=== PATIENT | female | born 1950 | race Caucasian/White ===

== ENCOUNTER → 2020-06-10 12:21 | Outpatient (CLI) | payer MEDICARE, OTHER, SELFPAY ==
--- NOTE | ~2020-06-10 | MM_ITS ---
EXAMINATION: MM screening alberto BI w negrita HISTORY: Screening mammogram TECHNIQUE: Craniocaudal and mediolateral oblique 3-D tomosynthesis images were obtained and synthetic 2-D images were generated. CAD analysis was submitted and interpreted. COMPARISON: 01/23/2019, 11/17/2017, 06/29/2016 bilateral digital screening mammogram examinations BREAST PARENCHYMAL COMPOSITION: There are scattered areas of fibroglandular density. FINDINGS: There is no evidence of suspicious mass, calcification, or architectural distortion to sugg est malignancy in either breast. There has been no suspicious interval change. IMPRESSION: 1. No mammographic evidence of malignancy. 2. Recommend routine screening mammography in one year. BI-RADS Category 1: Negative Reviewed, dictated and finalized at location A. [place] SHIFT MANAGER
== END ==
PROVIDERS: Visit Provider Obstetrics & Gynecology
DX: Z12.31 Encounter for screening mammogram for malignant neoplasm of breast (principal)
CPT/HCPCS: 77063; 77067

== ENCOUNTER → 2020-08-23 10:52 | Outpatient (CLI) | payer MEDICARE, OTHER, SELFPAY ==
--- NOTE | ~2020-08-23 | DEXA_ITS ---
Bone Density Report Name: Gloria Souza Age: 70 Sex: Female Ethnicity: White Date of : 1950 Indication: postmenopausal; screening for osteoporosis; hysterectomy; Referring Provider: Toño Carney Study: Bone densitometry was performed. Exam Date: August 23, 2020 Accession number: [id number] Bone Density: Region BMD T-score Z-score Classification AP Spine (L1, L4) 1.103 0.6 2.7 Normal Femoral Neck (Left) 0.787 -0.6 1.2 Normal Total Hip (Left) 0.938 0.0 1.4 Normal Femoral Neck (Right) 0.839 -0.1 1.7 Normal Total Hip (Right) 0.914 -0.2 1.2 Normal Total Hip Mean 0.926 -0.1 1.3 Normal World Health Organization criteria for BMD impression classify patients as: Normal (T-score at or above -1.0), Osteopenia (T-score between -1.0 and -2.5), or Osteoporosis (T-score at or below -2.5). 10-year Fracture Risk: FRAX not reported because: All T-scores for Spine Total, Hip Total, Femoral Neck at or above -1.0 Clinical Information Provided by Patient: Has used the following medications: Vitamin D, Calcium Has the following medical conditions: Hysterectomy Patient maximum height was 66.75 Menopause Age: 47 Drinks caffeinated beverages Onset of menses at age 12 Number of children 2 Impression: The patient has normal bone mass. Discussion: BONE DENSITY IS ABOVE THE MINIMUM DESIRABLE LEVEL AT ALL SKELETAL SITES TESTED. This patient?s bone mineral density is above the minimum desirable level (T-score -1.0 or better) at all sites measured. The patient should follow a healthful lifestyle (good nutrition with adequate calcium and vitamin D, and appropriate weight-bearing exercise). Follow-Up: Consider repeating this study in 5 years or sooner if there is some new clinical indication. Reported by: [facility] on 08/23/2020 11:26:00 AM. Reviewed, dictated and finalized at location ALucy JUAN
== END ==
DX: Z78.0 Asymptomatic menopausal state (principal); Z13.820 Encounter for screening for osteoporosis
CPT/HCPCS: 77080

== ENCOUNTER → 2021-06-17 10:11 | Outpatient (CLI) | payer MEDICARE, OTHER, SELFPAY ==
--- NOTE | ~2021-06-17 | MM_ITS ---
EXAMINATION: MM screening alberto BI w negrita HISTORY: Screening mammogram TECHNIQUE: Craniocaudal and mediolateral oblique 3-D tomosynthesis images were obtained and synthetic 2-D images were generated. CAD analysis was submitted and interpreted. COMPARISON: 06/10/2020, 01/23/2019, 11/17/2017 bilateral screening mammogram examinations BREAST PARENCHYMAL COMPOSITION: The breasts are almost entirely fatty. FINDINGS: There is no evidence of suspicious mass, calcification, or architectural distortion to sugg est malignancy in either breast. There has been no suspicious interval change. IMPRESSION: 1. No mammographic evidence of malignancy. 2. Recommend routine screening mammography in one year. BI-RADS Category 1: Negative Reviewed, dictated and finalized at location A. S SUPPORT MANAGER
== END ==
PROVIDERS: Visit Provider Obstetrics & Gynecology
DX: Z12.31 Encounter for screening mammogram for malignant neoplasm of breast (principal)
CPT/HCPCS: 77063; 77067

== ENCOUNTER → 2022-07-29 12:42 | Outpatient (CLI) | payer MEDICARE, OTHER, SELFPAY ==
--- NOTE | ~2022-07-29 | MM_ITS ---
EXAMINATION: MM screening alberto BI w negrita HISTORY: Screening mammogram TECHNIQUE: Craniocaudal and mediolateral oblique 3-D tomosynthesis images were obtained and synthetic 2-D images were generated. CAD analysis was submitted and interpreted. COMPARISON: 06/17/2021, 06/10/2020, 01/23/2019 bilateral screening mammogram examinations BREAST PARENCHYMAL COMPOSITION: The breasts are almost entirely fatty. FINDINGS: There is no evidence of suspicious mass, calcification, or architectural distortion to sugg est malignancy in either breast. There has been no suspicious interval change. IMPRESSION: 1. No mammographic evidence of malignancy. 2. Recommend routine screening mammography in one year. BI-RADS Category 1: Negative Reviewed, dictated and finalized at location A. THCARE RECRUITER
== END ==
PROVIDERS: PCP Internal Medicine; Visit Provider Obstetrics & Gynecology
DX: Z12.31 Encounter for screening mammogram for malignant neoplasm of breast (principal)
CPT/HCPCS: 77063; 77067

== ENCOUNTER 2022-08-27 12:41 | Outpatient (CLI) | payer MEDICARE, OTHER, SELFPAY ==
--- NOTE | ~2022-08-27 | DEXA_ITS ---
Bone Density Report Name: ERWIN SOUSA Age: 72 Sex: Female Ethnicity: White Date of : 1950 Indication: postmenopausal; screening for osteoporosis; height loss; hysterectomy; Referring Provider: SMILEY, ROBERT Study: Bone densitometry was performed. Exam Date: August 27, 2022 Accession number: [id number] Bone Density: Region BMD T-score Z-score Classification AP Spine(L1, L4) 1.084 0.4 2.6 Normal Femoral Neck (Left) 0.749 -0.9 1.0 Normal Total Hip (Left) 0.867 -0.6 1.0 Normal Femoral Neck (Right) 0.810 -0.4 1.5 Normal Total Hip (Right) 0.918 -0.2 1.4 Normal Total Hip Mean 0.893 -0.4 1.2 Normal World Health Organization criteria for BMD impression classify patients as: Normal (T-score at or above -1.0), Osteopenia (T-score between -1.0 and -2.5), or Osteoporosis (T-score at or below -2.5). 10-year Fracture Risk: FRAX not reported because: All T-scores for Spine Total, Hip Total, Femoral Neck at or above -1.0 Clinical Information Provided by Patient: Has used the following medications: HRT (i.e. estrogen/hormone therapy), Vitamin D, Calcium Has the following medical conditions: Hysterectomy Patient maximum height was 67 Menopause Age: 47 Drinks caffeinated beverages Onset of menses at age 12 Number of children 2 Impression: The patient has normal bone mass. Discussion: BONE DENSITY IS ABOVE THE MINIMUM DESIRABLE LEVEL AT ALL SKELETAL SITES TESTED. This patient?s bone mineral density is above the minimum desirable level (T-score -1.0 or better) at all sites measured. The patient should follow a healthful lifestyle (good nutrition with adequate calcium and vitamin D, and appropriate weight-bearing exercise). Follow-Up: Consider repeating this study in 5 years or sooner if there is some new clinical indication. Reported by: BALBINA on 08/27/2022 1:08:00 PM. Reviewed, dictated and finalized at location ALucy JUAN
== END 2022-08-27 12:42 | disposition home or self-care (01) ==
LOC: ANHIMG 12:45
PROVIDERS: PCP Internal Medicine; Visit Provider Internal Medicine
DX: Z78.0 Asymptomatic menopausal state (principal)
CPT/HCPCS: 77080

== ENCOUNTER 2023-05-19 08:31 | Outpatient (CLI) | payer MEDICARE, OTHER, SELFPAY ==
[2023-05-19 21:34] LABS: Thyroid Stimulating Hormone Reflex 0.697 uIU/mL (0.465-4.68)
== END 2023-05-19 08:32 | disposition home or self-care (01) ==
PROVIDERS: PCP Internal Medicine; Visit Provider Internal Medicine
DX: R79.9 Abnormal finding of blood chemistry, unspecified (principal); I10 Essential (primary) hypertension
CPT/HCPCS: 36415; 84443

== ENCOUNTER 2023-12-03 13:22 | Outpatient (CLI) | payer MEDICARE, OTHER, SELFPAY ==
--- NOTE | ~2023-12-03 | MM_ITS ---
EXAMINATION: MM screening alberto BI w negrita HISTORY: Screening mammogram TECHNIQUE: Craniocaudal and mediolateral oblique 3-D tomosynthesis images were obtained and synthetic 2-D images were generated. CAD analysis was submitted and interpreted. COMPARISON: 07/29/2022, 06/17/2021 bilateral screening mammogram examinations BREAST PARENCHYMAL COMPOSITION: The breasts are almost entirely fatty. FINDINGS: There is no evidence of suspicious mass, calcification, or architectural distortion to sugg est malignancy in either breast. There has been no suspicious interval change. IMPRESSION: 1. No mammographic evidence of malignancy. 2. Recommend routine screening mammography in one year. BI-RADS Category 1: Negative Reviewed, dictated and finalized at location B.
== END 2023-12-03 13:23 ==
LOC: MICIMG 13:23
PROVIDERS: PCP Obstetrics & Gynecology; Visit Provider Internal Medicine
DX: Z12.31 Encounter for screening mammogram for malignant neoplasm of breast (principal)
CPT/HCPCS: 77063; 77067

== ENCOUNTER 2025-01-13 09:49 | Outpatient (CLI) | payer MEDICARE, OTHER, SELFPAY ==
--- NOTE | ~2025-01-13 | MM_ITS ---
EXAMINATION: MM screening [facility] BI w negrita HISTORY: Screening mammogram TECHNIQUE: Craniocaudal and mediolateral oblique 3-D tomosynthesis images were obtained and synthetic 2-D images were generated. CAD analysis was submitted and interpreted. COMPARISON: 12/03/2023, 07/29/2022, 06/17/2021 BREAST PARENCHYMAL COMPOSITION:Not Dense. There are scattered areas of fibroglandular density. FINDINGS: No suspicious mass, calcification, or architectural distortion are identified in either cali ast to suggest malignancy. There has been no suspicious interval change. IMPRESSION: No mammographic evidence of malignancy. Recommend routine screening mammography in one year. BI-RADS Category 1: Negative Reviewed, dictated and finalized at location .
== END 2025-01-13 09:50 | disposition home or self-care (01) ==
LOC: MICIMG 09:50
PROVIDERS: PCP Internal Medicine; Visit Provider Internal Medicine
DX: Z12.31 Encounter for screening mammogram for malignant neoplasm of breast (principal)
CPT/HCPCS: 77063; 77067

== ENCOUNTER 2025-03-28 09:33 | Outpatient (CLI) | payer MEDICARE, OTHER, SELFPAY ==
--- OUTSIDE RECORDS SUMMARY | 2025-03-01 08:15 | XMS_ITS | Continuity of Care Document ---
Author Organization [facility] Address [address] [place] [address] Phone Care Team Providers Care Pier Worker Name Role Phone Karlo PONCE MD, Barrett Unavailable Unavailabl e Allergies, Adverse Reactions, Alerts Substance Reaction Status Criticality Sulfa (Sulfonamide Antibiotics) Other Active No Information Sulfa (Sulfonamide Antibiotics) Rash Active No Information Medications Medication Instructions Dosage Effective Dates (start - stop) Status Comments VALSARTAN-HYDROCHLOROTH IAZIDE (unknown strength) Not Available - Active ASPIRIN (unknown strength) Not Available - Active BIOTIN (unknown strength) Not Available - Active CALCIUM 500-VIT D3 (unknown strength) Not Available - Active CLARITIN (unknown strength) Not Available - Active MULTIVITAMINS (unknown strength) Not Available - Active NEURIVA PLUS (unknown strength) Not Available - Active OMEGA-3 (unknown strength) Not Available - Active OMEPRAZOLE (unknown strength) Not Available - Active PRESERVISION AREDS (unknown strength) Not Available - Active REPATHA SURECLICK (unknown strength) Not Available - Active Procedures Procedure Date Office/outpatient visit,est, high Office/outpatient visit,est, high MRI upr extr joint, w/o contrast 2024 Office/outpatient visit,est, mod 2024 BMI Documented Above Normal Limit F/U Pl an Doc Office/outpatient visit,new, mod 2024 Asp/inject major joint or bursa w/o US g uidance Kenalog 40mg/mL X-ray Exam Hip Unilat With Pelvis When P erf 2-3 View BMI Documented Above Normal Limit F/U Pl an Doc Advance Directives Directive Yes / No Effective Date File Name No Information Encounters Encounter Description Practice Location Reason(s) For Visit Diagnoses Date Provider Providers Copied on Encounter Office/outpa tient visit,[facility], [address] [facility] [address], [place], [place], [id number], [place] tel:[phone] [facility] Complete rotatr-cuff tear/ruptr of r shoulder, not trauma 5 Karlo Hyde. [address] [facility], [facility] [address], [place], [address], [place]. tel:[phone] Referring Provider: Barrett Up, [address] [place] [address] [address], [place], [address]. tel:[phone] Office/outpa tient visit,[facility], [address] [facility] [address], [place], [place], [id number], [place] tel:[phone] [facility] Complete rotatr-cuff tear/ruptr of r shoulder, not trauma 5 Karlo Hyde. [address] [facility], [facility] [address], [place], [address], [place]. tel:[phone] Referring Provider: Barrett Up, [address] [place] [address] [address], [place], [address]. tel:[phone] [facility], [address] [facility] [address], [place], [place], [id number], [place] tel:[phone] [facility] Complete rotatr-cuff tear/ruptr of r shoulder, not trauma [facility] [place] [address], [address], [place], [place], [id number] , [place]. tel:[phone] Referring Provider: Barrett Up, [address] [facility] [address], [place], [address]. tel:[phone] [facility], [address], [id number], [place] [phone] [facility] Complete rotator cuff tear of right shoulder, not specified as traumatic Dec- 5 Karlo Hyde. [address] [address], [place], [address], [place]. tel: [phone] Office/outpa tient visit,[facility] [place] [place] [facility], [address] [address], [place], [place], [id number], [place] [phone] [facility] Complete rotator cuff tear of right shoulder, not specified as traumatic Dec- 5 Karlo Hyde. [address] [place] [address], [place], [address], [place]. tel: [phone] Referring Provider: Barrett Up, [address] [place] [address], [place], [address]. [phone] [facility], [address] [place] [address], [id number], [place] [phone] [facility] No Information 5 Ronna Cornejo er. [address], [id number] , [place]. tel: [phone] Office/outpa tient visit,[facility], [address] [place] [address], [id number], [place] [phone] [facility] right hip (chief complaint) Pain in right hipTrochanteric bursitis, right hip 5 Ronna Cornejo er. [address] [place] [address], [id number] , [place]. tel: [phone] Referring Provider: Chirag aGrcia, [address] [place] [address], [place], [address]. tel:[phone] Family History Family Member Type Diagnosis Age At Onset Mother Problem (finding) Hypertension Mother Problem (finding) Stroke Mother Problem (finding) Heart Disease Mother Problem (finding) Osteoarthritis Payers Payer name Insurance type Covered democrat ID Authorsarabjit tiguido(s) [place] Part [place] CM [id number] Vinicio [id number] Social History Type Description Quantity Date Captured Comments Alcohol Use Details Unknown Caffeine Use Details Unknown Tobacco Use Status Current non-smoker Smoking Status Never smoker Non-Smoking Tobacco Use Details : No Details Available : No Details Available Sex Female Gender Identity Female Vital Signs Date / Time: Height Weight BMI Pulse Rate Blood Pressure Temperature Respiratory Rate Body Surface Area Head Circumference Head Circ. Percentile Wt./Jose. Percentile BMI percentile Pulse Ox Inhaled Ox 3:10 PM 66.00 in 92.986 kg (205.00 lbs) 33.0 9 kg/m eter (2) 2.08 meter(2) Chief Complaint And Reason For Visit No Information Reason For Referral Reason For Referral No Information Plan Of Treatment Date Type Action Status Referral Ordered: MRI Upper extr joint, w/o contrast RT shoulder ordered Referral Ordered: X-ray Exam Hip Unilat With Pelvis When Perf 2-3 View RT hip ordered Appointment Gloria Souza BOOKED History Of Present Illness Encounter Date Complaint History Of Prese nt Illness right hip Gloria is a 74 ye ar-old female who presents to the office for evaluation of right hip pain. She is 5 foot 6 205 pounds. Complains of right hip and back pain. This is been present for years pain is 5 out of 10 it is aching, sharp, throbbing. She is experiencing difficulty walking, difficulty sleeping lying on the right side limping, night pain, popping. Pain is worse with lifting, sitting, standing and walking. Pain is better with massaging, [id number] medications and resting. Treatments have included anti-inflammatories, chiropractic treatment, physical therapy, plain x-ray. She has had no surgery on the right hip. She does have sciatica radiating down the right leg she is a non-smoker. Radiographs AP pelvis and AP and lateral views of the right hip demonstrate mild arthritic changes of the right hip. There are small osteophytes noted on the lateral border of the greater trochanter. No evidence of fracture is present. There is arthritic changes on the right side of the lumbar spine. Functional Status Date Functional Assessmen t No Information Instructions Date Instruction Additional Infor ashley With the patient yvrose christy into the left lateral decubitus position. The right greater trochanter was palpated. The skin was cleansed with alcohol. The skin was then anesthetized with ethyl chloride and 3 cc of lidocaine were introduced and the subcutaneous tissues. We then reprepped the skin with Betadine and alcohol. A spinal needle was used to palpate the tip of the greater trochanter, 80 mg of Kenalog and 6 cc of lidocaine were injected into the trochanteric bursal space. A sterile dressing was applied. The patient tolerated this procedure well. Related to Trochanteric bursitis, right hip Assessments Type Assessment Date assessment Complete rotatr-cuff tear/ruptr of r shoulder, not trauma Patient Care Teams Name Effective Dates (start - stop) Status Members No Information
--- NOTE | ~2025-03-28 | DEXA_ITS ---
Bone Density Report Name: ERWIN SOUSA Age: 75 Sex: Female Ethnicity: White Date of : 1950 Indication: postmenopausal; screening for osteoporosis; height loss; hysterectomy; Referring Provider: SMILEY, ROBERT Study: Bone densitometry was performed. Exam Date: March 28, 2025 Accession number: [id number] Bone Density: Region BMD T-score Z-score Classification AP Spine(L1, L4) 1.061 0.2 2.6 Normal Femoral Neck (Left) 0.772 -0.7 1.3 Normal Total Hip (Left) 0.839 -0.8 0.9 Normal Femoral Neck (Right) 0.786 -0.6 1.5 Normal Total Hip (Right) 0.880 -0.5 1.2 Normal Total Hip Mean 0.859 -0.7 1.1 Normal World Health Organization criteria for BMD impression classify patients as: Normal (T-score at or above -1.0), Osteopenia (T-score between -1.0 and -2.5), or Osteoporosis (T-score at or below -2.5). 10-year Fracture Risk: FRAX not reported because: All T-scores for Spine Total, Hip Total, Femoral Neck at or above -1.0 Previous Exams: Region Exam Age BMD T-score BMD Change BMD Change Date g/cm2 vs Baseline vs Previous AP Spine (L1,L4) 03/28/2025 75 1.061 0.2 -0.023 (-2.1%) -0.023 (-2.1%) 08/27/2022 72 1.084 0.4 Total Hip(Left) 03/28/2025 75 0.839 -0.8 -0.028 (-3.3%) -0.028 (-3.3%) 08/27/2022 72 0.867 -0.6 Total Hip(Right) 03/28/2025 75 0.880 -0.5 -0.038 (-4.2%) -0.038 (-4.2%) 08/27/2022 72 0.918 -0.2 *Denotes significance at 95% confidence level, LSC for AP Spine = 0.022 g/cm2, LSC for Total Hip = 0.027 g/cm2 Clinical Information Provided by Patient: Has used the following medications: HRT (i.e. estrogen/hormone therapy), Vitamin D, Calcium Has the following medical conditions: Hysterectomy Patient maximum height was 67 Menopause Age: 47 Drinks caffeinated beverages Onset of menses at age 12 Number of children 2 Impression: The patient has normal bone mass. The BMD for the Total Hip(Left) decreased, changing by -3.3% since the last DXA exam. The BMD for the Total Hip(Right) decreased, changing by -4.2% since the last DXA exam. Discussion: BONE DENSITY IS ABOVE THE MINIMUM DESIRABLE LEVEL AT ALL SKELETAL SITES TESTED. This patient?s bone mineral density is above the minimum desirable level (T-score -1.0 or better) at all sites measured. The patient should follow a healthful lifestyle (good nutrition with adequate calcium and vitamin D, and appropriate weight-bearing exercise). Follow-Up: Consider repeating this study in 3 to 4 years to reassess this patient's status, or sooner if there is some new clinical indication. Reported by: PERLA on 03/28/2025 10:14:00 AM. Reviewed, dictated and finalized at location A.
--- OUTSIDE RECORDS SUMMARY | 2025-03-28 10:17 | XMS_ITS | Clinical Summary ---
Author Organization [facility] Address [address] [place] [address] Care Team Providers Care Raw Material Planner Name Role Phone Unavailable Primary Care Provider Unavailabl e Source Comments [facility],non-owned Affiliates and Associated Physician Practices is amultiple site organization consisting of ambulatory clinics and hospital sitesin [place], [place], [place] and [place]. This disclosure is being madepursuant to the Care Everywhere program and may not contain all information available regarding this patient. 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 Gender Identity Not on file Sexual Orientation Not on file Plan of Treatment Health Maintenance Due Date Last Done Comments BONE DENSITY TESTING 1950 COLOGUARD (AGES 45-75) - COL ON CA SCREENING 1950 COLON MONITORING 1950 COLONOSCOPY - COLON CA SCREENING 1950 CT COLONOGRAPHY - COLON CA SCREENING 1950 Colorectal Cancer Screening 1950 FIT - COLON CA SCREENING 1950 FLEX SIG - COLON CA SCREENING 1950 LIPID TESTING 1950 MAMMOGRAM 1950 HEPATITIS C SCREENING 01/29/1969 DTAP/TDAP/TD VACCINES (1 - Tdap) 1970 PNEUMOCOCCAL VACCINE 50+ (1 of 1 - PCV) 2001 ZOSTER VACCINE (1 of 2) 2001 DEPRESSION SCREENING 07/19/2024 COVID-19 VACCINE (1 - 2023-2 5 season) 2025 INFLUENZA VACCINE (#1) 2025 Respiratory Syncytial Virus (RSV) Vaccine Pt: or over 60 yrs (1 - 1-dose 75+ series) 2026 HEPATITIS B VACCINE Aged Out No longe r eligible based on patient's age to complete this topic HIB VACCINE Aged Out No longer eligi ble based on patient's age to complete this topic HPV VACCINE Aged Out No longer eligi ble based on patient's age to complete this topic MENINGOCOCCAL (Group B) VACC INE SHARED DECISION-MAKING Aged Out No longer eligibl e based on patient's age to complete this topic MENINGOCOCCAL GROUPS A/C/Y/W VACCINE Aged Out No longer eligible b ased on patient's age to complete this topic Insurance MEDICARE [facility]
--- OUTSIDE RECORDS SUMMARY | 2025-03-28 10:17 | XMS_ITS | Clinical Summary ---
Author Organization [facility] Building B Address [address] [place] [address] Care Team Providers Care Director Marketing Analytics Name Role Phone Nicola Castro MD Unavailable [phone] Jose Jimenes MD Unavailable [phone] Chi Castrejon MD Unavailable [phone] Jai Tong MD Primary Care Provider [phone] Allergies Active Allergy Reactions Criticality Noted Date Comments Levofloxacin Other (See comments),Unknown High 08/29/2015 Reaction: Other Atorvastatin Other (See comments) Low 07/01/2021 Muscle cramping Meperidine Rash Medium 11/20/2010 Oxycodone Hives Medium 04/26/2014 Pseudoephedrine Pseudoephedrine Hcl Other (See comments) Low 08/29/2015 Feels weird when taking medication Sulfa (Sulfonamide Antibiotics) Rash Medium 08/29/2015 Medications multivitamin (MULTIPLE VITAMINS) tablet tablet take 1 tablet by oral route every day 0 0 5 Active omeprazole (PriLOSEC) 20 mg capsule Take 1 capsule (20 mg total) by mouth daily Active loratadine (CLARITIN) 10 mg tablet Take 1 tablet (10 mg total) by mouth daily Active biotin 10,000 mcg capsule Take by mouth Acti ve calcium carbonate-vitami n D3 1500 mg (600 mg elemental) -200 units per tablet Take 1 tablet by mouth daily Active aspirin 81 mg enteric coated tablet Take 1 tablet (81 mg total) by mouth daily Active lutein-zeaxanthi n 25-5 mg capsule Take 1 capsule by mouth 2 (two) times a day Active valsartan-hydroC HLOROthiazide (DIOVAN-HCT) 80-12.5 mg per tablet TAKE 1 TABLET BY MOUTH DAILY 90 tablet 1 2 Active Repatha Syringe syringe syringe INJECT 140MG INTO THE SKIN EVERY 14 DAYS 3 Active SUMAtriptan (IMITREX) 100 mg tabletIndication s:Migraine Take 1 tablet (100 mg total) by mouth once as needed for migraine (headache) May repeat one time after 2 hours if needed. 9 tablet 1 3 Active Additional Information Patient not taking.Reported on 03/26/2025 magnesium glycinate 120 mg capsule Take 240 mg by mouth daily Active lactobacillus combination no.4 (Probiotic) 3 billion cell capsule Take by mouth Active omega-3/dha/epa/ dpa/fish oil (OMEGA-3 2100 ORAL) Take by mouth Active vitamin B complex (B COMPLEX 1 ORAL) Take by mouth Active B6/folic/B12/cof fee/phosphatid (NEURIVA PLUS ORAL) Take by mouth Active Active Problems Problem Noted Date Diagnosed Date Liver disease 03/31/2023 Traumatic brain injury with loss of consciousnes s 07/28/2022 Closed head injury with concussion 07/07/2022 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 Repeat 2021 Episodic tension-type headache, not intractable 01/20/2018 Essential hypertension 08/29/2015 Gastroesophageal reflux disease 08/29/2015 Hyperlipidemia 08/29/2015 Meningioma 08/29/2015 Overview (07/19/2019): MRI 2013: IMPRESSION: Stable appearance of small approximately 5 mm mass associated with the left anterior clinoid process, suggesting a small meningioma. Repeat MRI 2020 Benign meningioma of brain 02/21/2015 Overview (07/10/2019): She saw Dr. Hager April 2019: left anterior clinoid meningioma. She has had no change in this with her last scan of 2 years ago. She does not have any visual loss, recently saw her robotic weld technician in February and had normal visual taylor. Would plan to repeat her brain MRI with and without contrast to evaluate the meningioma in 2020. Assessment & Plan (02/23/2024 2:05 PM CDT): Recent MRI (09/2023) completed showed stable meningioma. 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 She infrequently has a tension headache that she rarely needs to take medications for. Continue sumatriptan as needed. Follow up in one year. Resolved Problems Problem Noted Date Diagnosed Date Resolved Date Elevated LFTs 07/10/2019 06/25/2020 Overview (07/10/2019): Mar 2019: Liver function tests: AST is elevated at 71 is increased from last time. I would tylenol based products. US unremarkable, repeat AST Apr 2019 63. Pain of hand 04/26/2014 07/19/2019 Encounters Date Type Department Care Team Description 03/26/2025 10:00 AM CDT [facility] [address] [place] [address] Sarahy Anaya NP Meningioma (HCC) (Primary Dx); Benign meningioma of brain (HCC) from Last 3 Months Immunizations Immunization Administration Dates Next Due Hep A, Adult 11/22/2020,02/09/2020 Hep A, Unspecified 11/22/2020,02/09/2020 Influenza, Quadrivalent, Hig h Dose, Preservative Free, Intrr 04/02/2021,03/26/2020 Influenza, Quadrivalent, Spl it, Preservative Free, Intramuscular 03/24/2016 Influenza, Trivalent, High D ose, Split, Preservative Free, Intramuscular 04/05/2019,03/26/2018,03/24/2017 Influenza, Trivalent, IM (MDV) 04/29/2015,2012 Influenza, Unspecified 03/26/2020,04/05/2019 Moderna SARS-CoV-2 Monovalen t Vaccination (12+ YRS) 11/20/2021,05/16/2021 Pneumococcal Conjugate PCV 13 01/06/2018 Pneumococcal Polysaccharide PPV23 08/07/2016 Tdap 04/02/2021,01/13/2010 ZOSTER Recombinant 08/02/2019,04/05/2019 Surgical History Surgery Date Site/Laterality Comments HYSTERECTOMY 1996 Hysterectomy TUBAL LIGATION tubal Ligation OTHER SURGICAL HISTORY Bladder surg BUNIONECTOMY bunionectomy CHOLECYSTECTOMY 2000 Cholecystectomy Medical History Medical History Date Comments Hypertension Hypertension Hx Other Medical hyperlipidemia Hx Other Medical Osteopenia Hx of colonic polyps 07/19/2019 Colonoscopy January 2018. Repeat 2020 Elevated LFTs 07/10/2019: Liver function tests: AST is elevated at 71 is increased from last time. I would tylenol based products. US unremarkable, repeat AST Apr 2019 63. Allergic rhinitis GERD (gastroesophageal reflu x disease) Family History Medical History Relation Name Comments Car Accident Father accident; Cause of : accident Heart disease Mother Heart disease; Hypertension Mother Hypertension; Diabetes Other child 39 Diabetes mellit us; Other Other child 39 cholesterol; Relation Name Status Comments Father Mother Other child 39 Social History Tobacco Use Types Packs/Day Years Used Date Smoking Tobacco: Never Smokeless Tobacco: Never Tobacco Cessation:Counseling Given: Not Answered Alcohol Use Standard Drinks/Week Comments Yes 0 (1 standard drink = 0.6 oz pur e alcohol) AUDIT-C Answer Date Recorded Frequency of Alcohol Consumption Not on file 09/09/2023 Q2: How many drinks containi ng alcohol do you have on a typical day when you are drinking? Patient does not drink Frequency of Binge Drinking Not on file 08/20 PHQ-2 Answer Date Recorded PHQ-2 Total Score (If total score is 3 or more points, staff should administer the PHQ-9) 0 12/30/2021 Comments No Sex and Gender Information Value Date Recorded Sex Assigned at Not on file Legal Sex Female 3:36 AM IMAGING TECH Gender Identity Female 06/19/2020 11:06 AM IMAGING TECH Sexual Orientation Straight 06/19/2020 11 :06 AM IMAGING TECH Obstetrics History Last Filed Vital Signs Vital Sign Reading Time Taken Comments Blood Pressure 126/74 03/26/2025 9:44 AM CDT Pulse 78 03/26/2025 9:44 AM CDT Temperature 36.6 C (97.8 F) 10/03/2024 10:46 AM CDT Respiratory Rate 22 10/03/2024 10:46 AM CDT Oxygen Saturation 98% 10/03/2024 10:57 AM CDT Inhaled Oxygen Concentration - - Weight 91.6 kg (202 lb) 03/26/2025 9:44 AM CDT Height 167.6 cm (5' 6) 03/26/2025 9:44 AM CDT Body Mass Index 32.6 03/26/2025 9:44 AM CDT Plan of Treatment Health Maintenance Due Date Last Done Comments Hepatitis B Screening 1968 Well Visit 65+ 07/01/2022 07/01/2021, 06/25/2020 Depression Screening 12/30/2022 12/30/2021, 07/01/2021, 06/25/2020, Additional history exists Fall Risk Assessment 12/30/2022 12/30/2021, 07/01/2021, 02/11/2021, Additional history exists Colon Cancer Screening-Colonoscopy 02/12/2024 02/11/2021 Covid-19 Vaccine (5 2024- 6 season) 2025 11/20/2021, 05/16/2021, 10/08/2020, Additional history exists Influenza Vaccine (#1) 2025 , 04/12/2023, 04/02/2021, Additional history exists Breast Cancer Screening-Mammogram 01/13/2026 01/13/2025, 01/13/2025, 01/23/2019 Osteoporosis Screening-Bone Density Scan 03/12/2027 03/12/2025, 08/27/2022, 01/10/2013 DTaP/Tdap/Td Vaccine (3 - Td or Tdap) 04/02/2031 04/02/2021, 01/13/2010 Pneumococcal vaccine 65+ Completed 01/06/2018, 07/20 Zoster Vaccine Completed 08/02/2019, 04/05/2019 Colon Cancer Screening-CT Colonography Discontinued 02/11/2021 Colon Cancer Screening-DNA Stool Discontinued 02/12/20 Colon Cancer Screening-FIT Discontinued 02/11/2021 Colon Cancer Screening-Sigmoidoscopy Discontinued 02/11/2021 Hepatitis C Screening Completed 07/01/2021, 020 Procedures Procedure Name Priority Date/Time Associated Diagnosis Comments HEPATITIS PANEL, ACUTE Routine 07/01/2021 11:35 AM IMAGING TECH Elevated AST (SGOT) COLONOSCOPY 02/11/2021 7:58 AM CDT HM MAMMOGRAPHY Routine 01/23/2019 from Last 3 Months or Most Recently Relevant to Health Maintenance Results * Hepatitis panel, acute (07/01/2021 11:35 AM IMAGING TECH) Hep A IgM Nonreactive Nonreactive [facility] Comment: Interpretive Data: If Hep A IgM Ab is reported as Equivocal, a new sample should be drawn in two weeks for testing. Current interpretive data was last revised on 19. Hep B core IgM Nonreactive Nonreactive [facility] Comment: Interpretive Data If HepB Core IgM Ab is reported as Equivocal, a new sample should be drawn in two weeks for testing. Current interpretive data was last revised on 19. Hep C Ab Nonreactive Nonreactive [facility] Comment: Interpretive Data Nonreactive: Antibodies to HCV not detected. Does NOT exclude the possibility of recent exposure to HCV. Equivocal: Equivocal for HCV antibodies. Supplemental molecular testing will be automatically performed to determine infection status in accordance with current CDC screening recommendations. Reactive: Positive for HCV antibodies. This may represent current or past HCV infection. Supplemental molecular testing will be automatically performed to determine current infection status in accordance with current CDC screening recommendations. Interpretive data was last revised on 2019. HepBsAg Nonreactive Nonreactive [facility] Blood 07/01/2021 11:3 5 AM IMAGING TECH 07/01/2021 3:25 PM IMAGING TECH us Toño Carney MD LAB MICROBIOLOGY - GENER AL ORDERABLES Final Result [facility] [address] Department of Laboratories [place], [place] [id number] * COLONOSCOPY (02/11/2021 7:58 AM CDT) Anatomical Region Laterality Modality Other Narrative Procedure Note Corrine Petty MD - 02/11/2021 7:58 AM CDT - [facility] Endoscopy Lab Patient Name: Gloria Souza Procedure Date: 02/11/2021 7:58 AM Date of : 1950 Admit Type: Outpatient Age: 71 Gender: Female Note Status: Finalized Attending MD: Corrine Petty M.D. Procedure Date: 02/11/2021 Procedure: Colonoscopy Indications: High risk colon cancer surveillance: Personalhistory of colonic polyps, Last colonoscopy 3 years ago Providers: Corrine Petty M.D., BRENT Tobar (Anesthesia Staff), Jonathan Ch RN Referring MD: Toño Carney M.D. Medicines: Monitored Anesthesia Care Complications: No immediate complications. Estimated Blood Loss: Estimated blood loss was minimal. Procedure: Pre-Anesthesia Assessment: - Prior to the procedure, a History and Physicalwas performed, and patient medications and allergieswere reviewed. The patient is competent. The risks and benefits of the procedure and the sedation optionsand risks were discussed with the patient. Allquestions were answered and informed consent was obtained. Patient identification and proposed procedure were verified by the physician and the nurse in the pre-procedure area in the procedure room. Mental Status Examination: alert and oriented. Airway Examination: normal oropharyngeal airway and neck mobility. Respiratory Examination: clear to auscultation. CV Examination: normal. Prophylactic Antibiotics: The patient does not requireprophylactic antibiotics. Prior Anticoagulants: The patient has taken no previous anticoagulant or antiplatelet agents. ASA Grade Assessment: II - A patient withmild systemic disease. After reviewing the risks and benefits, the patient was deemed in satisfactory condition to undergo the procedure. The anesthesia plan was to use monitored anesthesia care (MAC). Immediately prior to administration of medications, the patient was re-assessed for adequacy to receive sedatives. The heart rate, respiratory rate, oxygen saturations, blood pressure, adequacy of pulmonary ventilation, and response to care were monitored throughout the procedure. The physical status ofthe patient was re-assessed after the procedure. - The risks and benefits of the procedure and the sedation options and risks were discussed with the patient. All questions were answered and informed consent was obtained. After I obtained informed consent, the scope was passed under direct vision. Throughout theprocedure, the patient's blood pressure, pulse, and oxygen saturations were monitored continuously. The scopewas passed under direct vision. The Colonoscope was introduced through the anus and advanced to the the cecum, identified by appendiceal orifice andileocecal valve. The colonoscopy was performed without difficulty. The patient tolerated the procedurewell. The quality of the bowel preparation was good. The bowel preparation used was SUPREP via split dose instruction. Findings: The perianal and digital rectal examinations were normal. A few small-mouthed diverticula were found in the sigmoid colon and descending colon. Two sessile polyps were found in the transverse colon and cecum. The polyps were 3 to 4 mm in size. These polyps were removed with a jumbo cold forceps. Resection and retrieval were complete. Verification of patient identification for the specimen was done by the nurse.Estimated blood loss was minimal. Non-bleeding internal hemorrhoids were found during retroflexion. The hemorrhoids were mild. Impression: - Diverticulosis in the sigmoid colon and in the descending colon. - Two 3 to 4 mm polyps in the transverse colon andin the cecum, removed with a jumbo cold forceps.Resected and retrieved. - Non-bleeding internal hemorrhoids. Recommendation: - Discharge patient to home (ambulatory). - Resume previous diet. - Continue present medications. - Await pathology results. - Repeat colonoscopy for surveillance based on pathology results. Procedure Code(s): --- Professional --- 62229, Colonoscopy, flexible; with biopsy, singleor multiple Diagnosis Code(s): --- Professional --- Z86.010, Personal history of colonic polyps K64.8, Other hemorrhoids K63.5, Polyp of colon K57.30, Diverticulosis of large intestine without perforation or abscess without bleeding CPT copyright 2019 [employer]. All rights reserved. The codes documented in this report are preliminary and upon medical billing coder reviewmay be revised to meet current compliance requirements. Electronically signed by Malinda Castle MD Corrine Petty M.D. 02/11/2021 8:55:57 AM This report has been electronically signed by the physician. Number of Addenda: 0 Note Initiated On: 02/11/2021 7:58 AM Corrine Petty MD ENDOSCOPY PROCEDURES Final Re sult from Last 3 Months or Most Recently Relevant to Health Maintenance Insurance [facility] MEDICARE MEDICARE [facility] MEDICARE [facility] Advance Directives For more information, please contact: [phone] Documents on File Type Date Recorded Patient Bundle Collector Expl anation ADVANCE DIRECTIVE 05/29/2018 12:00 AM [facility] FINANCIAL/MEDICAL Care Teams Director Marketing Analytics Relationship Specialty Start Date End Date Jai Tong MD [address] [address] PCP - General Internal Medicine 07/07/22 Nicola Castro MD Consulting Physician Neurology 07/10/19 [place] [address] [place] [address] Referring Physician Orthopedic Surgery 07/19/19 [place] [address] [address] Referring Physician Gastroenterology 06/30/20
--- OUTSIDE RECORDS SUMMARY | 2025-03-28 10:17 | XMS_ITS | Encounter Summary ---
Author Organization [facility] Address [address] [place] [address] Care Team Providers Care Supervisor Heavy Equipment Name Role Phone Unavailable Primary Care Provider Unavailabl e Encounter Details Date Type Department Care Team (Late st Contact Info) Description 06/08/2019 Lab Requisition [facility] DermPath Lab [address] [place] [address] Mario Ybarra MD [address] [place] [address] Social History Tobacco Use Types Packs/Day Years Used Date Smoking Tobacco: Never Assessed Comments Unknown Sex and Gender Information Value Date Recorded Sex Assigned at Not on file Legal Sex Female 5:51 PM PHYSICAL EDUCATION AIDE Gender Identity Not on file Sexual Orientation Not on file documented as of this encounter Plan of Treatment Not on file documented as of this encounter Procedures Procedure Name Priority Date/Time Associated Diagnosis Comments DERMATOPATHOLOGY Routine 06/07/2019 12:0 0 AM PHYSICAL EDUCATION AIDE documented in this encounter Results * DERMATOPATHOLOGY (06/07/2019 12:00 AM PHYSICAL EDUCATION AIDE) Case Report Dermatopathology Report Case: [id number] Authorizing Provider: Mario Ybarra MD Collected: 06/07/2019 12:00 AM Ordering Location: [facility] DermPath Lab Received: 06/08/2019 02:04 PM Pathologist: Dominga Tran MD Specimen: Skin, right lat upper back 9 12:20 PM PHYSICAL EDUCATION AIDE DERMATOPATHOLOGY LABORATORY Final Diagnosis Specimen A. SKIN, right lat upper back: LICHEN PLANUS-LIKE KERATOSIS (BENIGN LICHENOID KERATOSIS) (L82.1) 9 12:20 PM PHYSICAL EDUCATION AIDE DERMATOPATHOLOGY LABORATORY at 1220 PHYSICAL EDUCATION AIDE Clinical History R/O ISK, Fernandez's, BCC. 9 12:20 PM [facility] DERMATOPATHOLOGY LABORATORY Gross Description Specimen A: Received is one formalin filled container labeled with the patient's name and designated right lat upper back. The specimen consists of a shave biopsy measuring [id number]. Jar 0. 12:20 PM [facility] DERMATOPATHOLOGY LABORATORY Microscopic Description Specimen A. SKIN, right lat upper back: The epidermis is mildly acanthotic. There is a lichenoid infiltrate with vacuolar changes of basilar keratinocytes and scattered necrotic keratinocytes. 9 12:20 PM [facility] DERMATOPATHOLOGY LABORATORY Disclaimer An external and internal positive and negative controls are appropriate for the histochemical, immunohistochemical and immunofluorescence stain(s) in this case (if any), except where stated explicitly. The performance characteristics of the stain(s) cited in this report were developed and its performance characteristic determined by the Dermatopathology Laboratory at [facility], directed by Dr. Rosemarie Jackson. These tests need not be, and therefore are not, approved by the [place] Food and Drug Administration. The tests are used for clinical purposes. Billing Codes Specimen Charges Stain Charges 01423 1 9 12:20 PM [facility] DERMATOPATHOLOGY LABORATORY Embedded Images 12:20 PM [facility] DERMATOPATHOLOGY LABORATORY Pathology/Cytolog y TISSUE SPECIMEN FROM SKIN / Unknown 06/07/2019 06/08/2019 2:04 PM PHYSICAL EDUCATION AIDE Mario Ybarra MD LAB - PATHOLOGY/CYTOLOGY ORD ERABLES Final Result DERMATOPATHOLOGY LABORATORY [facility] - Department of Dermatology [address] [place] [address], [address] [place] [address], [facility] [phone] documented in this encounter Visit Diagnoses Not on filedocumented in this encounter
--- OUTSIDE RECORDS SUMMARY | 2025-03-28 10:17 | XMS_ITS | Encounter Summary ---
Author Organization [facility] Address [address] [place] [address] Care Team Providers Care Line Haul Owner Operator Name Role Phone Jai Tong MD Primary Care Provider [phone] Reason for Visit * Reason Onset Date Comments Procedure 01/07/2018 Encounter Details Date Type Department Care Team (Late st Contact Info) Description 01/07/2018 [facility]phone [facility] [address] [place] [address] Dominga Sherwood, clinical project assistant Social History Tobacco Use Types Packs/Day Years Used Date Smoking Tobacco: Never Alcohol Use Standard Drinks/Week Comments No 0 (1 standard drink = 0.6 oz pur e alcohol) Comments Unknown Sex and Gender Information Value Date Recorded Sex Assigned at Female 04/05/2024 10:21 PM CDT Legal Sex Female 3:57 PM RECONNAISSANCE MAN Gender Identity Female 04/05/2024 10:21 PM CDT Sexual Orientation Straight 04/05/2024 10 :21 PM CDT documented as of this encounter Miscellaneous Notes * Telephone Encounter - Dominga Sherwood, RN - 01/07/2018 12:07 PM CDT Gloria Souza is a 67 y.o. female 1950 Procedure: colonoscopy Diagnosis: Screening for colon cancer Provider: Dr. England Date and Time: January 22, 1200 PM Location: [facility] Lab Type of Prep given: Colyte Previously seen by a [facility] Baby Sitter in an inpatient or outpatient setting? (If yesteresa rowe MD) Previous endoscopy PROCEDURE: Colonoscopy Date: (Mo--Yr) 2008 Location: [place] Were Polyps Removed? (If yes please document polyp pathology) no PCP: Yuriy Julian, DO Referring Provider: (If different than PCP) Pre-Procedure health assessment completed by Dominga Sherwood RN, Height: 5'7 Weight: 181 lb BMI: 28.34 Current Outpatient Prescriptions Medication Sig Dispense Refill ??? peg 3350-electrolytes (COLYTE) 240-22.72-6.72 -5.84 gram solution Take 4,000 mL by mouth one time only for 1 dose Follow prescribing physician's instructions ONLY. These were sent by mail or email.. 4000 mL 0 ??? atorvastatin (LIPITOR) 20 mg tablet TAKE 1 TABLET BY MOUTH LATE DAY. 90 Tablet 3 ??? valsartan-hydroCHLOROthiazide (DIOVAN HCT) 80-12.5 mg tablet TAKE 1 TABLET BY MOUTH EVERY DAY 90 Tablet 3 ??? Biotin 10,000 mcg Capsule Take by mouth. ??? MELATONIN (MELATIN ORAL) Take 2 mg by mouth. ??? loratadine (CLARITIN) 10 mg tablet Take 10 mg by mouth daily. ??? calcium-vitamin D3 (CALTRATE 600+D) 600 mg(1,500mg) -200 unit Tablet Take 1 Tablet by mouth daily. ??? multivitamin (DAILY-PRASANTH) tablet Take 1 Tablet by mouth daily. ??? FERROUS FUMARATE/VIT BCOMP,C (SUPER B COMPLEX ORAL) Take 1 Tablet by mouth daily. ??? aspirin (ECOTRIN EC) 81 mg Tablet, Delayed Release (E.C.) Take 81 mg by mouth daily. ??? mzfcc-8f-psq-epa-fish oil 1,000-1,400 mg Capsule, Delayed Release(E.C.) Take 1 Capsule by mouthdaily. ??? omeprazole (PRILOSEC) 20 mg Capsule, Delayed Release(E.C.) Take 20 mg by mouth daily. No current facility-administered medications for this visit. Past Medical History: Diagnosis Date ??? HTN (hypertension) ??? Hyperlipidemia ??? 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 HX BUNIONECTOMY both feet ??? HX CHOLECYSTECTOMY ??? HX DILATION AND CURETTAGE ??? HX HAND SURGERY trigger thumb release both hands ??? HX HYSTERECTOMY total hysterectomy Social History Substance Use Topics ??? Smoking status: Never Smoker ??? Smokeless tobacco: Not on file ??? Alcohol use No Allergies Allergen Reactions ??? Levaquin [Levofloxacin] Headache ??? Demerol [Meperidine] Rash ??? Sudafed [Pseudoephedrine Hcl] Other (See Comments) Feels weird when taking medication ??? Sulfa (Sulfonamide Antibiotics) Rash documented in this encounter Plan of Treatment Not on file documented as of this encounter Visit Diagnoses Not on filedocumented in this encounter Care Teams Line Haul Owner Operator Relationship Specialty Start Date End Date Jai Tong MD [address] [place] [address] PCP - General Internal Medicine 03/31/23 documented as of this encounter
--- OUTSIDE RECORDS SUMMARY | 2025-03-28 10:17 | XMS_ITS | Clinical Summary ---
Author Organization [facility] Address [address] [place] [address] Phone Care Team Providers Care Stockholder Name Role Phone Jai Tong MD Primary Care Provider [phone] Allergies Active Allergy Reactions Criticality Noted Date Comments Levofloxacin Headache High 08/29/2015 Meperidine Rash Low 08/29/2015 Oxycodone Hives High 04/26/2014 Pseudoephedrine Hcl Other (See Comments) 08/29/2015 Feels weird when taking medication Sulfa (Sulfonamide Antibiotics) Rash Low 08/29/2015 Medications calcium-vitamin D3 (CALTRATE 600+D) 600 mg(1,500mg) -200 unit Tablet Take 1 Tablet by mouth daily. Active multivitamin (DAILY-PRASANTH) tablet Take 1 Tablet by mouth daily. Active aspirin (ECOTRIN EC) 81 mg Tablet, Delayed Release (E.C.) Take 81 mg by mouth daily. Active omeprazole (PRILOSEC) 20 mg Capsule, Delayed Release(E.C.) Take 20 mg by mouth daily. Active Biotin 10,000 mcg Capsule Take by mouth. Act valerio MELATONIN (MELATIN ORAL) Take 2 mg by mouth. Active loratadine (CLARITIN) 10 mg tablet Take 10 mg by mouth daily. Active B-complex + vitamin C (SUPER B-C) Tablet Take 1 Tablet by mouth daily. Active valsartan-hydro CHLOROthiazide (DIOVAN HCT) 80-12.5 mg tablet TAKE 1 TABLET BY MOUTH EVERY DAY 90 Tablet 9 Active omega 0-jkq-lsu-fish oil 100-160-1,000 mg Capsule Take 2,000 Int'l Units/day by mouth. Active lutein-zeaxanth in 25-5 mg Capsule Take by mouth. Activ e evolocumab (Repatha Syringe) 140 mg/mL Syringe Inject 140 mg by subcutaneous injection every 2 weeks. 3 Active coffee-theanine -superoxide dis (Neuriva De-Stress) 100-200-10 mg Capsule Take by mouth daily. Active Active Problems Problem Noted Date Diagnosed Date Liver disease 03/31/2023 Elevated alkaline phosphatase level 01/30/2020 Elevated AST (SGOT) 01/29/2020 Positive COLEMAN (antinuclear antibody) 01/29/2020 Essential hypertension 08/29/2015 Hyperlipidemia 08/29/2015 Meningioma 08/29/2015 Gastroesophageal reflux disease 08/29/2015 Encounters Date Type Department Care Team Description 02/21/2025 External Device Data ST[facility] ABSTRACTION Provider, Abstract 01/31/2025 External Device Data [facility] ABSTRACTION Provider, Abstract 01/30/2025 External Device Data [facility] ABSTRACTION Provider, Abstract from Last 3 Months Immunizations Immunization Administration Dates Next Due (PNEUMOVAX 23)(50 YRS UP) PN EUMOCOCCAL POLYSACCHARIDE (PPV23) 0.5 ML, IM 08/07/2016 (PREVNAR 13)(6 WKS UP) PNEUM OCOCCAL CONJUGATE (PCV13) 0.5 ML, IM 01/06/2018 Influenza Seasonal Unspecified Formulation IM Influenza Vaccine High Dose 65+ Yrs IM 8 Family History Medical History Relation Name Comments Heart Disease Mother Hypertension Mother Stroke Mother Colon Cancer Neg Hx Relation Name Status Comments Mother Social History Tobacco Use Types Packs/Day Years Used Date Smoking Tobacco: Never Smokeless Tobacco: Never Tobacco Cessation:Counseling Given: Not Answered Alcohol Use Standard Drinks/Week Comments No 0 (1 standard drink = 0.6 oz pur e alcohol) Comments No Sex and Gender Information Value Date Recorded Sex Assigned at Female 04/05/2024 10:21 PM CDT Legal Sex Female 3:57 PM 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 Gender Identity Female 04/05/2024 10:21 PM CDT Sexual Orientation Straight 04/05/2024 10 :21 PM CDT Last Filed Vital Signs Vital Sign Reading Time Taken Comments Blood Pressure 135/72 04/05/2024 10:36 AM CDT Pulse 83 04/05/2024 10:36 AM CDT Temperature 36.1 C (97 F) 05/04/2019 9:10 AM CDT Respiratory Rate 21 05/04/2019 11:10 AM CDT Oxygen Saturation 91% 05/04/2019 11:10 AM CDT Inhaled Oxygen Concentration - - Weight 93.4 kg (206 lb) 04/05/2024 10:36 AM CDT Height 170.2 cm (5' 7) 04/05/2024 10:36 AM CDT Body Mass Index 32.26 04/05/2024 10:36 AM CDT Plan of Treatment Health Maintenance Due Date Last Done Comments FIT-DNA Q 3 years 02/04/1996 FIT/FOBT Q 1 year 02/04/1996 Flex Sig/CT Colonography Q 5 years 02/04/1996 RSV VACCINE (60+ or ) (1 - Risk 60-74 years 1-dose series) 2011 BREAST CANCER SCREENING 06/10/2021 06/10/20, 06/10/2020, 01/23/2019, Additional history exists COLORECTAL SCREENING 02/12/2024 02/11/2021, 02/11/2021, 02/11/2021, Additional history exists Colorectal Cancer Screening 02/12/2024 INFLUENZA VACCINE (#1) 2025 , 04/09/2022, 04/02/2021, Additional history exists COVID-19 Vaccine ( - 2024-2 6 season) 2025 04/12/2023, 11/20/2021, 05/16/2021, Additional history exists OSTEOPOROSIS SCREENING 08/27/2027 , 08/27/2022, 08/23/2020, Additional history exists DTAP/TDAP/TD VACCINES (3 - T d or Tdap) 04/02/2031 04/02/2021, 01/13/2010 PNEUMOCOCCAL VACCINE 50+ YEARS Completed 01/06/2018 , 08/07/2016 ZOSTER VACCINE Completed 08/02/2019, 04/05/2019 Medical Devices Implanted Type Area Key Carrier Device Identifier Shelf Expiration Date Model / Serial / Lot Speedbridge Implant System With Scorpion-Multif rebekah Needle Implanted:Qty: 1 on 05/04/2019 by Jose Jimenes MD at [facility] [place] Left: Shoulder [employer] 12/16/2020 [id number] -8 / / [id number] [place] Sut [id number] Clean Runner Monyk-C Dbl #2tt [id number] - [id number] Implanted:Qty: 1 on 05/04/2019 by Jose Jimenes MD at [facility] [place] Left: Shoulder [employer] 03/18/2021 [id number] -[id number] / / [id number] Procedures Procedure Name Priority Date/Time Associated Diagnosis Comments COLONOSCOPY REPORT 02/02/2018 11 :00 AM CDT MAMMO SCREENING BILAT Routine 11/17/2017 XR DEXA BONE DENSITY AXIAL 1 OR MORE SITES Routine 01/10/2013 from Last 3 Months or Most Recently Relevant to Health Maintenance Results * COLONOSCOPY REPORT (02/02/2018 11:00 AM CDT) Narrative Procedure Note Dawn England DO - 02/02/2018 11:00 AM CDT [facility] Endoscopy Patient Name: Gloria Souza Procedure Date: 02/02/2018 Date of : 1950 Admit Type: Outpatient Attending MD: Dawn England MD Procedure: Colonoscopy Indications: Screening for colorectal malignant neoplasm, Screening for colorectal malignant neoplasm (last colonoscopy was 10 years ago) Providers: Dawn England MD Referring MD: Yuriy Julian Medicines: Monitored Anesthesia Care Complications: No immediate complications. Procedure: Informed consent was obtained for the procedure, including moderate sedation after risks were discussed. Based on the pre-procedure assessment, including review of the patient's medical history, medications, allergies, and review of systems, the patient was deemed to be an appropriate candidate for sedation. A timeout was performed. Continuous ECG monitoring, pulse oximetry, blood pressure monitoring, and direct observation were performed. The scope was introduced through the anus and advanced to the cecum, identified by appendiceal orifice and ileocecal valve. The colonoscopy was performed without difficulty. The patient tolerated the procedure well. The quality of the bowel preparation was fair. Estimated Blood Loss: Estimated blood loss: none. Estimated blood loss was minimal. Findings: The perianal examination was normal. Two sessile polyps were found in the hepatic flexure and cecum. The polyps were 3 to 10 mm in size. These polyps were removed with a cold snare. Resection and retrieval were complete. Estimated blood loss was minimal. There was fibrous and sedimentary stool was found in the entire colon, interfering with visualization. Lavage of the area was performed using a moderate amount of sterile water, resulting in clearance with good visualization. No additional abnormalities were found on retroflexion. Impression: - Preparation of the colon was fair. - Two 3 to 10 mm polyps at the hepatic flexure and in the cecum, removed with a cold snare. Resected and retrieved. - Stool in the entire examined colon. Recommendation: - Await pathology results. - Repeat colonoscopy in 3 years for surveillance. - Recommend a two day clear liquid diet and large volume split prep with next colonoscopy Dawn England MD 02/02/2018 11:00:03 AM This report has been signed electronically. Number of Addenda: [address]; [place] [address] Dawn England DO GI PROCEDURE ORDERABLES Fin al Result * MAMMO SCREENING BILAT (11/17/2017) Anatomical Region Laterality Modality Breast Bilateral Mammography us Antonio Maurer MD MAMMO ORDERABLES Final Result * XR DEXA BONE DENSITY AXIAL 1 OR MORE SITES (01/10/2013) Anatomical Region Laterality Modality Other Abstract Provider DIAGNOSTIC IMAGING ORDERABLES Final Result from Last 3 Months or Most Recently Relevant to Health Maintenance Insurance MEDICARE PART A AND B [facility] RX [employer] RX Member Subscriber Plan / Payer (Ef fective 2016-Present) Name:Gloria Souza Relation to Subscriber:Self Name:Gloria Souza Payer ID:Not on file Group ID:[id number] Type:RX Medicare Part D Address: [address] Advance Directives For more information, please contact: [phone] * Full Code (Latest Code Status on File) Date Activated Date Inactivated Comments 05/04/2019 6:21 AM 05/04/2019 1:18 PM * Full Code Date Activated Date Inactivated Comments 02/02/2018 9:17 AM 02/02/2018 1:42 PM Care Teams Stockholder Relationship Specialty Start Date End Date Jai Tong MD [address] [place] [address] PCP - General Internal Medicine 03/31/23
== END 2025-03-28 09:34 | disposition home or self-care (01) ==
LOC: ANHFOHIMG 09:35
PROVIDERS: PCP Internal Medicine; Visit Provider Internal Medicine
DX: Z78.0 Asymptomatic menopausal state (principal)
CPT/HCPCS: 77080

== ENCOUNTER 2025-04-12 10:16 | Inpatient (IN) | payer MEDICARE, OTHER, SELFPAY ==
[2025-04-12] VITALS (11 sets, daily range): BP systolic 139–168; BP diastolic 68–81; PULSE 77–98; RESP 12–20; TEMP 36.2–36.7; O2SAT 94–100; BMI 33.0
--- NOTE | ~2025-04-12 | CT_ITS ---
EXAMINATION: CT abdomen pelvis w con DATE: 04/12/2025 13:24 INDICATION: Abdominal pain TECHNIQUE: Computed tomography (CT) of the abdomen and pelvis was performed without intravenous contrast. The dose-length product was 1048.96 mGy-cm. Automated exposure control and iterative reconstruction technique were employed. COMPARISON: None. FINDINGS: Bibasilar dependent atelectasis. Heart size normal. No significant pleural or pericardial effusion. Status post cholecystectomy. The liver, spleen, pancreas, adrenal glands and left kidney are unremarkable. There is mild right hydronephrosis, although no obstructing stone or mass is identified. The bladder is severely distended. Fatty infiltration of the liver. Nonobstructive bowel gas pattern. There is fecal impaction of the rectum. There is atherosclerosis of the aorta. No aneurysm. Moderate lower thoracic and lumbar spondylosis. No acute osseous abnormality. There is dextroscoliosis of the lumbar spine there is mild osteoarthritis of the hips.. IMPRESSION: 1. Severe bladder distention with mild right hydronephrosis. No obstructing stone or mass identified. Reviewed, dictated and finalized at location O. IMPRESSION: 1. Severe bladder distention with mild right hydronephrosis. No obstructing sto ne or mass identified.
--- NOTE | ~2025-04-12 | XR_ITS ---
Abdominal radiograph(s) INDICATION: Impaction COMPARISON: CT 2 days prior TECHNIQUE: 3 views portable AP supine abdomen FINDINGS: Lung bases clear. Scattered colonic stool. Moderate volume. Scattered small bowel gas.. No evidence of organomegaly. No abnormal abdominal calcifications. No acute bony abnormality. IMPRESSION: 1. No acute abnormality. 2. Moderate volume stool can suggest constipation. Reviewed, dictated and finalized at location R.
--- NOTE | ~2025-04-12 | US_ITS ---
EXAMINATION: US renal BI, 04/16/2025 15:50 CDT HISTORY: Right hydronephrosis Comparison: None Technique: Engel-scale and color Doppler images were obtained. Findings: KIDNEYS: Renal cortices intact, no solid masses, cysts or calculi, no hydronephrosis. Right Kidney: Right kidney 9.7 x 5 x 5.8 cm, normal. Left Kidney: Left kidney 10.1 x 4.7 x 5.1 cm limited but grossly normal. Bladder: Tao catheter in the bladder . Impression: No acute abnormality. Reviewed, dictated and finalized at location P. Impression: No acute abnormality.
--- OUTSIDE RECORDS SUMMARY | 2025-04-12 11:19 | XMS_ITS | Clinical Summary ---
[facility] Organization [facility] Address [address] [place] [address] Care Team Providers Care Consumer Loan Manager Name Role Phone Nicola Castro MD Unavailable [phone] Jose Jimense MD Unavailable [phone] Chi Castrejon MD Unavailable [phone] Jai Tong MD Primary Care Provider [phone] Allergies Active Allergy Reactions Criticality Noted Date [...] (01/03/2021): Added automatically from request for surgery [id number] Elevated alkaline phosphatase level 01/30/2020 Positive COLEMAN [...] have any visual loss, recently saw her staging technician in February and had normal visual [...] AM CDT [facility] [address] [place] [address] Sarahy Anaya NP Meningioma (HCC) [...] on file Legal Sex Female 3:36 AM MACHINE 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 Gender Identity Female 06/19/2020 11:06 AM MACHINE SHORTHAND TEACHER Sexual Orientation Straight 06/19/2020 11 :06 AM MACHINE SHORTHAND TEACHER Obstetrics History Last Filed Vital Signs Vital [...] HEPATITIS PANEL, ACUTE Routine 07/01/2021 11:35 AM MACHINE SHORTHAND TEACHER Elevated AST (SGOT) COLONOSCOPY 02/11/2021 7:58 AM CDT HM MAMMOGRAPHY Routine 01/23/2019 from Last 3 Months or Most Recently Relevant to Health Maintenance Results * Hepatitis panel, acute (07/01/2021 11:35 AM MACHINE SHORTHAND TEACHER) Hep A IgM Nonreactive Nonreactive [facility] Comment: Interpretive Data: If Hep A IgM Ab is reported as Equivocal, a new sample should be drawn in two weeks for testing. Current interpretive data was last revised on 19. Hep B core IgM Nonreactive Nonreactive [facility] Comment: Interpretive Data If HepB Core IgM Ab is reported as Equivocal, a new sample should be drawn in two weeks for testing. Current interpretive data was last revised on 19. Hep C Ab Nonreactive Nonreactive [facility] Comment: Interpretive Data Nonreactive: Antibodies to [...] Nonreactive [facility] Blood 07/01/2021 11:3 5 AM MACHINE SHORTHAND TEACHER 07/01/2021 3:25 PM MACHINE SHORTHAND TEACHER us Toño Carney MD LAB MICROBIOLOGY - GENER AL ORDERABLES Final Result [facility] [address] Department of Laboratories [place], [place] [id number] * COLONOSCOPY (02/11/2021 7:58 AM CDT) Anatomical Region Laterality Modality Other Narrative Procedure Note Corrine Petty MD - 02/11/2021 7:58 AM CDT - [facility] Endoscopy Lab Patient Name: Gloria Souza Procedure [...] pathology results. Procedure Code(s): --- Professional --- 09420, Colonoscopy, flexible; with biopsy, singleor multiple Diagnosis Code(s): --- Professional --- Z86.010, Personal history of colonic polyps K64.8, Other hemorrhoids K63.5, Polyp of colon K57.30, Diverticulosis of large intestine without perforation or abscess without bleeding CPT copyright 2019 [employer]. All rights reserved. The codes documented in this report are preliminary and upon rolling machine operator reviewmay be revised to meet current compliance requirements. Electronically signed by Malinda Castle MD Corrine Petty M.D. 02/11/2021 8:55:57 AM This report has been electronically signed by the physician. 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 [place] SUPERVISOR FINANCIAL/MEDICAL Care Teams Consumer Loan Manager Relationship Specialty Start Date End Date Jai Tong MD [address] [address] PCP - General Internal Medicine 07/07/22 Nicola Castro MD Consulting Physician Neurology 07/10/19 [place] [address] [address] Referring Physician Orthopedic Surgery 07/19/19 [place] [address] [address] Referring Physician Gastroenterology 06/30/20
--- OUTSIDE RECORDS SUMMARY | 2025-04-12 11:19 | XMS_ITS | Clinical Summary ---
Author Organization [facility] Address [address] [address] Care Team Providers Care Press Shop Supervisor Name Role Phone Unavailable Primary Care Provider Unavailabl e Source Comments [facility],non-owned Affiliates and Associated Physician Practices is amultiple site organization consisting of ambulatory clinics and hospital sitesin [place], [place], [place] and [place]. This disclosure is being madepursuant to the Care Everywhere program and may not contain all information available regarding this patient. Last updated 18.[facility] [employer]ov cc. Social History Tobacco Use Types Packs/Day Years Used Date Smoking Tobacco: Never Assessed Comments Unknown Sex and Gender Information Value Date Recorded Sex Assigned at Not on file Legal Sex Female 5:51 PM BAKERY HELPER Gender Identity Not on file Sexual Orientation [...] age to complete this topic Insurance [facility]ICARE [facility]
--- OUTSIDE RECORDS SUMMARY | 2025-04-12 11:19 | XMS_ITS | Encounter Summary ---
Author Organization [facility] Address [address] [place] [address] Care Team Providers Care Gambling Cashier Name Role Phone Unavailable Primary Care Provider Unavailabl e Encounter Details Date Type Department Care Team (Late st Contact Info) Description 06/08/2019 Lab Requisition [facility] DermPath Lab [address] [facility] [place] [address] Mario Ybarra MD [address] [place] [address] Social History Tobacco Use Types Packs/Day Years Used Date Smoking Tobacco: Never Assessed Comments Unknown Sex and Gender Information Value Date Recorded Sex Assigned at Not on file Legal Sex Female 5:51 PM CHEMICAL INSPECTOR Gender Identity Not on file Sexual Orientation Not on file documented as of this encounter Plan of Treatment Not on file documented as of this encounter Procedures Procedure Name Priority Date/Time Associated Diagnosis Comments DERMATOPATHOLOGY Routine 06/07/2019 12:0 0 AM CHEMICAL INSPECTOR documented in this encounter Results * DERMATOPATHOLOGY (06/07/2019 12:00 AM CHEMICAL INSPECTOR) Case Report Dermatopathology Report Case: [id number] Authorizing Provider: Mario Ybarra MD Collected: 06/07/2019 12:00 AM Ordering Location: [facility] DermPath Lab Received: 06/08/2019 02:04 PM Pathologist: Dominga Tran MD Specimen: Skin, right lat upper back 9 12:20 PM CHEMICAL INSPECTOR DERMATOPATHOLOGY LABORATORY Final Diagnosis Specimen A. SKIN, right lat upper back: LICHEN PLANUS-LIKE KERATOSIS (BENIGN LICHENOID KERATOSIS) (L82.1) 9 12:20 PM CHEMICAL INSPECTOR DERMATOPATHOLOGY LABORATORY at 1220 CHEMICAL INSPECTOR Clinical History R/O ISK, Fernandez's, BCC. 9 12:20 PM [facility] DERMATOPATHOLOGY LABORATORY Gross Description Specimen A: Received is one formalin filled container labeled with the patient's name and designated right lat upper back. The specimen consists of a shave biopsy measuring [id number]. Jar 0. 12:20 PM [facility] DERMATOPATHOLOGY LABORATORY Microscopic Description Specimen A. SKIN, right lat upper back: The epidermis is mildly acanthotic. There is a lichenoid infiltrate with vacuolar changes of basilar keratinocytes and scattered necrotic keratinocytes. 9 12:20 PM [facility] DERMATOPATHOLOGY LABORATORY Disclaimer An external and internal positive and negative controls are appropriate for the histochemical, immunohistochemical and immunofluorescence stain(s) in this case (if any), except where stated explicitly. The performance characteristics of the stain(s) cited in this report were developed and its performance characteristic determined by the Dermatopathology Laboratory at [facility], directed by Dr. Rosemarie Jackson. These tests need not be, and therefore are not, approved by the [place] Food and Drug Administration. The tests are used for clinical purposes. Billing Codes Specimen Charges Stain Charges 89934 1 9 12:20 PM [facility] DERMATOPATHOLOGY LABORATORY Embedded Images 12:20 PM [facility] DERMATOPATHOLOGY LABORATORY Pathology/Cytolog y TISSUE SPECIMEN FROM SKIN / Unknown 06/07/2019 06/08/2019 2:04 PM CHEMICAL INSPECTOR Mario Ybarra MD LAB - PATHOLOGY/CYTOLOGY ORD ERABLES Final Result DERMATOPATHOLOGY LABORATORY [facility] - Department of Dermatology [address] [place] [address], [address] [place] [address], [facility] [phone] documented in this encounter Visit Diagnoses Not on filedocumented in this encounter
--- OUTSIDE RECORDS SUMMARY | 2025-04-12 11:19 | XMS_ITS | Encounter Summary ---
Author Organization [facility] Address [address] [place] [address] Care Team Providers Care Woods Rider Name Role Phone Jai Tong MD Primary Care Provider [phone] Reason for Visit * Reason Onset Date Comments Procedure 01/07/2018 Encounter Details Date Type Department Care Team (Late st Contact Info) Description 01/07/2018 Telephone [facility] [address] [place] [address] Dominga Sherwood, customer success director Social History Tobacco Use Types Packs/Day Years Used Date Smoking Tobacco: Never Alcohol Use Standard Drinks/Week Comments No 0 (1 standard drink = 0.6 oz pur e alcohol) Comments Unknown Sex and Gender Information Value Date Recorded Sex Assigned at Female 04/05/2024 10:21 PM CDT Legal Sex Female 3:57 PM WILDLIFE 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 female 1950 Procedure: colonoscopy Diagnosis: Screening for colon cancer Provider: Dr. England Date and Time: January 22, 1200 PM Location: [facility] GI Lab Type of Prep given: Colyte Previously seen by a [facility] Fats And Oils Loader in an inpatient or outpatient setting? (If yesteresa rowe MD) Previous endoscopy PROCEDURE: Colonoscopy Date: (Mo--Yr) 2008 Location: [place] Were Polyps Removed? (If yes please document [...] Take 81 mg by mouth daily. ??? mohhi-3y-ywp-epa-fish oil 1,000-1,400 mg Capsule, Delayed Release(E.C.) Take [...] on filedocumented in this encounter Care Teams Woods Rider Relationship Specialty Start Date End Date Jai Tong MD [address] [place] [address] PCP - General Internal Medicine 03/31/23 documented as of this encounter
--- OUTSIDE RECORDS SUMMARY | 2025-04-12 11:19 | XMS_ITS | Clinical Summary ---
Author Organization [facility] Address [address] [place] [address] Phone Care Team Providers Care Central Sterile Tech Name Role Phone Jai Tong MD Primary Care Provider [phone] Allergies Active Allergy Reactions Criticality Noted Date [...] EVERY DAY 90 Tablet 9 Active omega 5-qxc-gxw-fish oil 100-160-1,000 mg Capsule Take 2,000 Int'l Units/day by mouth. Active lutein-zeaxanth in 25-5 mg Capsule Take by mouth. Activ e evolocumab (Repatha Syringe) 140 mg/mL Syringe Inject 140 mg by subcutaneous injection every 2 weeks. 3 Active coffee-theanine -superoxide dis (Neuriva De-Stress) 100-200-10 mg Capsule Take by mouth daily. Active linaCLOtide (LINZESS) 145 mcg capsule Take 1 Capsule (145 mcg) by mouth daily in the morning before breakfast. 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 Gender Identity Female 04/05/2024 10:21 PM CDT [...] 1-dose series) 2011 BREAST CANCER SCREENING 06/10/2021 06/10/20 20, 06/10/2020, 01/23/2019, Additional history exists COLORECTAL SCREENING 02/12/2024 02/11/2021, 02/11/2021, 02/11/2021, Additional history exists Colorectal Cancer Screening 02/12/2024 INFLUENZA VACCINE (#1) 2025 3, 04/09/2022, 04/02/2021, Additional history exists COVID-19 Vaccine (2024-2 6 season) 2025 04/12/2023, 11/20/2021, 05/16/2021, Additional history exists OSTEOPOROSIS SCREENING 08/27/2027 3, 08/27/2022, 08/23/2020, Additional history exists DTAP/TDAP/TD VACCINES (3 - T d or Tdap) 04/02/2031 04/02/2021, 01/13/2010 PNEUMOCOCCAL VACCINE 50+ YEARS Completed 01/06/2018 , 08/07/2016 ZOSTER VACCINE Completed 08/02/2019, 04/05/2019 Medical Devices Implanted Type Area Dye Reel Operator Helper Device Identifier Shelf Expiration Date Model / Serial / Lot Speedbridge Implant System With Scorpion-Multif rebekah Needle Implanted:Qty: 1 on 05/04/2019 by Jose Jimenes MD at [facility] [place] Left: Shoulder [employer] 12/16/2020 [id number] -[id number] / / [id number] [place] Sut [id number] M2M Solution Swivelckk-C Dbl #2tt [id number] - [id number] Implanted:Qty: 1 on 05/04/2019 by Jose Jimenes MD at [facility] [place] Left: Shoulder [employer] 03/18/2021 [id number] -[id number] / / [id number] Procedures Procedure Name Priority Date/Time Associated Diagnosis Comments COLONOSCOPY REPORT 02/02/2018 11 :00 AM CDT MAMMO SCREENING BILAT Routine 11/17/2017 XR DEXA BONE DENSITY AXIAL 1 OR MORE SITES Routine 01/10/2013 from Last 3 Months or Most Recently Relevant to Health Maintenance Results * COLONOSCOPY REPORT (02/02/2018 11:00 AM CDT) Narrative Procedure Note Dawn England DO - 02/02/2018 11:00 AM CDT [facility] Endoscopy Patient Name: Gloria Souza Procedure [...] of Addenda: [address]; [place] [address] us Dawn England DO GI PROCEDURE ORDERABLES Fin al Result * MAMMO SCREENING BILAT (11/17/2017) Anatomical Region Laterality Modality Breast Bilateral Mammography Antonio Maurer MD MAMMO ORDERABLES Final Result * XR DEXA BONE DENSITY AXIAL 1 OR MORE SITES (01/10/2013) Anatomical Region Laterality Modality Other Abstract Provider DIAGNOSTIC IMAGING ORDERABLES Final Result from Last 3 Months or Most Recently Relevant to Health Maintenance Insurance [employer] [facility] Member Subscriber Plan / Payer ( fective 2016-Present) Name:Libby Gloria Relation to Subscriber:Self Name:Gloria Souza Payer ID:Not on file Group ID:[id number] Type:RX Medicare Part D Address: [address] Advance Directives For more information, please contact: [phone] * Full Code (Latest Code Status on File) Date Activated Date Inactivated Comments 05/04/2019 6:21 AM 05/04/2019 1:18 PM * Full Code Date Activated Date Inactivated Comments 02/02/2018 9:17 AM 02/02/2018 1:42 PM Care Teams Central Sterile Tech Relationship Specialty Start Date End Date Jai Tong MD [address] [facility] [address] [place] [address] PCP - General Internal Medicine 03/31/23
[2025-04-12] MEDS: ONDANSETRON INJ 4 MG/2 ML VIAL IV PUSH (12:02)
--- NOTE | 2025-04-12 12:07 | ED_ITS ---
HPI - General Adult General Chief complaint: Unspecified Stated complaint: CONSTIPATION AFTER BEING ON POST OP MEDS Time Seen by Provider: 04/12/25 10:58 History of Present Illness HPI narrative: Gloria Souza is a 75-year-old female who presents today with complaints of having constipation. She states that she had right rotator cuff surgery last Wednesday and she has not had a bowel movement since. She complains of having fullness and abdominal pain, along with nausea. She states that she has not vomited. She feels that she could still pass gas if she tried but states she feels lot of pressure over time she does. She states that since Wednesday she has been taking Linzess and lactulose and still nothing has come out. And she is having nausea and increased pain. Related Data Home Medications ?Medication ?Instructions ?Recorded ?Confirmed ?Last Taken ?Type pravastatin 40 mg tablet 40 mg PO DAILY 08/04/2207/19 Unknown History valsartan 80 mg tablet 80 mg PO DAILY 08/04/2207/19 Unknown History Allergies Allergy/AdvReac Type Severity Reaction Status Date / Time meperidine Allergy Severe HIVES Verified 04/12/25 10:17 Sulfa (Sulfonamide Allergy Severe HIVES Verified 04/12/25 10:17 Antibiotics) levofloxacin Allergy Intermediate RASH Verified 04/12/25 10:17 hydrocodone Allergy Hives / Verified 04/12/25 10:17 Red Face Review of Systems 2 Review of Systems: All systems reviewed & are unremarkable except as noted in HPI and below PMFSH Past Medical History Medical History (Updated 04/12/25 @ 18:50 by Emperatriz Gonsalez APRN) Other abnormalities of gait and mobility Dyslipidemia Constipation Urinary retention Hypertension High cholesterol Surgical History Surgical History (Updated 04/12/25 @ 18:50 by Emperatriz Gonsalez APRN) Status post rotator cuff repair History of rotator cuff surgery (~04/18/19) (L) shoulder History of hand surgery 2013 (L) hand trigger thumb release 2014 (R) hand trigger thumb release History of bunionectomy of right great toe (~2013) History of bunionectomy of left great toe 2008 & 05/24/18 History of stress incontinence procedure using tension free vaginal tape (~2011) History of breast biopsy 11/05/01 (R) breast--benign 04/08/02 (R) breast--fatty necrosis History of cholecystectomy (2000) History of bilateral salpingo-oophorectomy (08/08/97) benign paratubal hydatid of morgagni/tuboovarian adhesions History of ovarian cystectomy (06/21/96) (L) ovarian cyst--benign History of hysterectomy (11/17/95) mild chronic endocervicitis/superficial adenomyosis/leiomyomata History of dilation and curettage (08/23/95) menometrorrhagia/dysmenorrhea--benign History of cervical polypectomy (10/14/92) moderate atypia, focal with koilcytosis History of tubal ligation (~1979) Family History Family History Sibling Diabetes mellitus sister Mother Cerebrovascular accident Hypertension Heart disease Social History Social History Smoking status: Never smoker Alcohol intake: never Substance use: never Living arrangements: alone Occupation/Education: retired Gender identity (if verbalized by the patient): Female Sexual Orientation (if Verbalized by the Patient): Straight or Heterosexual Exam 2 Narrative: GENERAL: no acute distress, appears uncomfortable HEAD: Normocephalic, atraumatic. EYES: PERRLA and EOMI. ENT: Nares clear, no rhinorrhea or epistaxis. Oropharynx without tonsillar hypertrophy exudate or other lesions. NECK: Supple. No adenopathy or masses. No carotid bruits or JVD CHEST: Clear to auscultation. No respiratory distress. No wheezes rales or rhonchi HEART: Regular rate and rhythm. No murmur heard. Normal peripheral pulses. ABDOMEN: hypoactive to absent bowel sounds, abdomen is slightly distended + pain generalized EXTREMITIES: Normal range of motion. No edema. SKIN: Warm, dry, no rash. NEURO: No focal deficits. Alert and oriented x3. PSYCH: Normal mood and affect. Course Vital Signs Vital signs: Vital Signs Temperature 36.2 C L 04/12/25 10:26 Pulse Rate 94 04/12/25 10:26 Respiratory Rate 18 04/12/25 10:26 Blood Pressure 139/68 04/12/25 10:26 Pulse Oximetry 99 04/12/25 10:26 Oxygen Delivery Room Air 04/12/25 10:26 Temperature 36.7 C 04/12/25 18:22 Pulse Rate 86 04/12/25 18:22 Respiratory Rate 20 04/12/25 18:22 Blood Pressure 142/72 H 04/12/25 18:22 Pulse Oximetry 99 04/12/25 18:22 Oxygen Delivery Room Air 04/12/25 11:56 Medical Decision Making MDM Narrative Medical decision making narrative: 75 y/o status post 1 week post op complains of constipation based on hx and exam concern for SBO, Constipation, CBC shows mild leukocytosis 12.5 hemodynamically stable CMP sodium 131 glucose 113 AST 67 alk-phos 145 CT scan shows severe bladder distension with right renal hydronephrosis If getting CT results when back to talk with patient she explained that she had to use the bathroom they would to do the CT scan but she has since Wednesday the bathroom without allergic male did was feeling fine did feel like she needs to go anymore we did a postvoid bladder scan which showed greater than 1100 mL of urine in her bladder. She was then she placed a Tao catheter and 1400 mls of urine came out, Tao was clamped for couple of hours unclear 200 mils of urine came out. The CT scan did not today severe constipation it did mention a fecal impaction in the rectum. I did may need is impaction and was able to get some stool out as far as patient could tolerate is she is willing to try an enema to see if any more stool could come 0. I explained to her that the CT did not show severe constipation that now that her bladder is deflated she may be able to have a bowel movement easier. With the amount of urinary retention that she was having we will not be able to remove that Tao catheter today and with her recent surgery unable to use her right arm she is concerned that living at home she will be able to handle the Tao catheter with 1 arm at home and daughter is unable to stay with her and feels that she should be admitted into the hospital. I did reach out to the hospitalist regarding admission for this urinary retention needing blood catheter postop 1 week and constipation. Talked with [facility] hospitalist who accepts admission. Did go ahead and do the enema for the patient she has small results with that. Medical Records Medical records reviewed: Yes I reviewed the external patient's medical records. Vital Signs Vital Signs: Vital Signs Temperature 36.2 C L 04/12/25 10:26 Pulse Rate 94 04/12/25 10:26 Respiratory Rate 18 04/12/25 10:26 Blood Pressure 139/68 04/12/25 10:26 Pulse Oximetry 99 04/12/25 10:26 Oxygen Delivery Room Air 04/12/25 10:26 Temperature 36.7 C 04/12/25 18:22 Pulse Rate 86 04/12/25 18:22 Respiratory Rate 20 04/12/25 18:22 Blood Pressure 142/72 H 04/12/25 18:22 Pulse Oximetry 99 04/12/25 18:22 Oxygen Delivery Room Air 04/12/25 11:56 Vital signs reviewed Lab Data Lab results reviewed: Yes I reviewed the patient's lab results. 04/12/25 12:03 04/12/25 12:03 Labs: Lab Results 04/12/25 Range/Units 12:03 WBC 12.5 H (4.5-10.0) K/mm3 RBC 4.27 (4.2-5.4) M/mm3 Hgb 13.2 (12.0-15.0) g/dL Hct 38.4 (37.0-47.0) % MCV 89.9 (80-100) fl MCH 30.9 (26-34) pg MCHC 34.4 (32-36) g/dl RDW 12.9 (11.5-14.5) % Plt Count 327 (150-375) k/mm3 MPV 8.4 (7.4-10.4) fl Immature Gran % (Auto) 0.5 (0-0.5) % Neut % (Auto) 83.0 H (45.5-73.1) % Lymph % (Auto) 7.8 L (18.3-44.2) % [place] % (Auto) 7.5 (2.6-8.5) % Eos % (Auto) 0.8 (0-4.4) % Baso % (Auto) 0.4 (0.2-1.2) % Lymph # (Auto) 0.97 (0.9-3.2) K/mm3 [place] # (Auto) 0.9 H (0.1-0.6) K/mm3 Eos # (Auto) 0.1 (0-0.3) K/mm3 Baso # (Auto) 0.1 (0.0-0.1) K/mm3 Abs Immat Gran (auto) 0.06 H (0.00-0.031) K/mm3 Absolute Neuts (auto) 10.4 H (1.3-6.7) K/mm3 Absolute Nucleated RBC 0.000 (0.0-0.012) K/mm3 Nucleated RBC % 0.0 (0.0-0.2) % Sodium 131 L (137-145) mmol/L Potassium 3.5 (3.4-5.0) mmol/L Chloride 97 L (98-107) mmol/L Carbon Dioxide 29 (22-30) mmol/L Anion Gap 5 (4-12) mmol/L BUN 12 (7-17) mg/dL Creatinine 0.61 L (0.7-1.0) mg/dL Estim Creat Clear Calc 79 ml/min Estimated GFR > 60 (59 - ) Glucose 113 H (65-110) mg/dL Calcium 8.6 (8.4-10.2) mg/dL Total Bilirubin 0.5 (0.2-1.3) mg/dL AST 67 H (14-36) U/L ALT 24 (6-35) U/L Alkaline Phosphatase 145 H (38-126) U/L Total Protein 7.1 (6.3-8.2) g/dL Albumin 3.7 (3.5-5.1) g/dL Imaging Data Radiologist's impression: Impressions Abdomen/Pelvis CT 04/12/25 13:26 IMPRESSION: 1. Severe bladder distention with mild right hydronephrosis. No obstructing stone or mass identified. Discharge Plan Discharge Clinical Impression: Urinary retention, Status post rotator cuff repair Constipation Qualifiers: Constipation type: other constipation type Qualified Code(s): K59.09 - Other constipation Patient Disposition: Still a Patient Condition: Stable Time of Disposition: 18:49
[2025-04-12 12:10] LABS: Hematocrit 38.4 % (37.0-47.0); Hemoglobin 13.2 g/dL (12.0-15.0); Immature Granulocyte Percent A 0.5 % (0-0.5); Lymphocytes Absolute Auto 0.97 K/mm3 (0.9-3.2); Mean Corpuscular HGB Conc 34.4 g/dl (32-36); Mean Corpuscular Hemoglobin 30.9 pg (26-34); Mean Corpuscular Volume 89.9 fl (80-100); Nucleated Red Blood Cells Absolute Auto 0.000 K/mm3 (0.0-0.012); Nucleated Red Blood Cells Perc 0.0 % (0.0-0.2); Platelet Count Result 327 k/mm3 (150-375); Red Blood Count 4.27 M/mm3 (4.2-5.4); White Blood Count 12.5 K/mm3 (4.5-10.0)
[2025-04-12 12:30] LABS: Alanine Aminotransferase 24 U/L (6-35); Albumin Level 3.7 g/dL (3.5-5.1); Alkaline Phosphatase 145 U/L (38-126); Anion Gap 5 mmol/L (4-12); Aspartate Amino Transferase 67 U/L (14-36); Bilirubin,Total 0.5 mg/dL (0.2-1.3); Blood Urea Nitrogen 12 mg/dL (7-17); Calcium 8.6 mg/dL (8.4-10.2); Carbon Dioxide 29 mmol/L (22-30); Chloride 97 mmol/L (98-107); Estimated CRCL calculation 79 ml/min; Estimated Glomerular Filt Rate > 60; Glucose 113 mg/dL (65-110); Potassium 3.5 mmol/L (3.4-5.0); Sodium 131 mmol/L (137-145); Total Protein 7.1 g/dL (6.3-8.2)
[2025-04-12 15:37] LABS: Add Urine Microscopic? NO; Appearance Urine Clear (Clear); Glucose Urine UA Negative (Negative); Leukocyte Esterase Ur Negative LEU/UL (Negative); Nitrate Urine Negative (Negative); Specific Grav Ur 1.018 (1.001-1.035)
--- NOTE | 2025-04-12 15:45 | P.HP_ITS ---
H&P: HPI History of Present Illness Date/Time: 04/12/25 15:45 Chief Complaint: Constipation Narrative: This is a very pleasant 8-year-old female patient with past medical history of hypertension hyperlipidemia who is status post right sided rotator cuff repair 04/04/25 at [facility] assisting surgeon [facility] in [place] who comes to the emergency room with complaints of having no bowel movement for 1 week and increased urgency of urination. Patient reports that she was given oxycodone to take for pain and has been taking that at home for pain and her arm is held in immobilization with sling and swath. As a result patient has been unable to have a bowel movement despite her surgeon prescribing her Linzess and lactulose that she has taken for the past 3 days. Patient stated last night the pain and bloating in the abdomen became unbearable, prompting her to present to the emergency room for evaluation today. Patient also endorses urinary symptoms of urgency for 4 days without any burning and states she feels so bloated she cannot tell if she is adequately emptying her bladder or not. Her temperature yesterday was a T-max of 101.0?. She also had associated nausea and vomiting yesterday. She reports intermittent flatus. Patient does live at home alone, states she has no help and that she cannot adequately care for herself independently right now. In the emergency room workup was performed showing normal vital signs, unremarkable metabolic panel and CBC with mild leukocytosis at 12.[address] scan of the abdomen pelvis showing a severely distended bladder with mild right hydronephrosis without stone or mass. Patient also noted to have rectal impaction. Patient was manually disimpacted in the ED by the ER provi yasmine. Bladder scan showed 1400 cc urine in the bladder and Ragland catheter was placed. Hospitalist service is being asked to admit this patient in the current setting for management of constipation, urinary retention and being unable to care for herself at home potentially requiring placement. Pt is agreeable to this POC. Urinalysis was not ordered at the point this patient was presented to hospitalist service. I asked emergency room provider to please have urine sent and we will monitor for the need of potential antibiotic given findings of CT scan, patient complaints and concern for febrile status yesterday. In addition, the ER provider stated she would order an enema. Review of Systems Review of Systems: All systems reviewed & are unremarkable except as noted in HPI and below PMFSH Past Medical History Medical History (Updated 04/12/25 @ 16:16 by MERARI Nina) Other abnormalities of gait and mobility Dyslipidemia Constipation Urinary retention Hypertension High cholesterol Surgical History Surgical History (Updated 04/12/25 @ 16:13 by MERARI Nina) Status post rotator cuff repair History of rotator cuff surgery (~04/18/19) (L) shoulder History of hand surgery 2013 (L) hand trigger thumb release 2014 (R) hand trigger thumb release History of bunionectomy of right great toe (~2013) History of bunionectomy of left great toe 2008 & 05/24/18 History of stress incontinence procedure using tension free vaginal tape (~2011) History of breast biopsy 11/05/01 (R) breast--benign 04/08/02 (R) breast--fatty necrosis History of cholecystectomy (2000) History of bilateral salpingo-oophorectomy (08/08/97) benign paratubal hydatid of morgagni/tuboovarian adhesions History of ovarian cystectomy (06/21/96) (L) ovarian cyst--benign History of hysterectomy (11/17/95) mild chronic endocervicitis/superficial adenomyosis/leiomyomata History of dilation and curettage (08/23/95) menometrorrhagia/dysmenorrhea--benign History of cervical polypectomy (10/14/92) moderate atypia, focal with koilcytosis History of tubal ligation (~1979) Family History Family History Sibling Diabetes mellitus sister Mother Cerebrovascular accident Hypertension Heart disease Social History Social History Smoking status: Never smoker Alcohol intake: never Substance use: never Living arrangements: alone Occupation/Education: retired Gender identity (if verbalized by the patient): Female Sexual Orientation (if Verbalized by the Patient): Straight or Heterosexual Meds Home Medications and Allergies Home Medications ?Medication ?Instructions ?Recorded ?Confirmed ?Type pravastatin 40 mg tablet 40 mg PO DAILY 08/04/2207/19 History valsartan 80 mg tablet 80 mg PO DAILY 08/04/2207/19 History Allergies Allergy/AdvReac Type Severity Reaction Status Date / Time meperidine Allergy Severe HIVES Verified 04/12/25 10:17 Sulfa (Sulfonamide Allergy Severe HIVES Verified 04/12/25 10:17 Antibiotics) levofloxacin Allergy Intermediate RASH Verified 04/12/25 10:17 hydrocodone Allergy Hives / Verified 04/12/25 10:17 Red Face Vital Signs Vital Signs - 24 hr 04/12/25 10:26 04/12/25 11:56 04/12/25 12:00 Temperature 97.2 F L 97.6 F Pulse Rate 94 77 78 Respiratory Rate 18 12 13 Blood Pressure 139/68 159/76 H 159/76 H Pulse Oximetry 99 97 97 Oxygen Delivery Room Air Room Air 04/12/25 12:01 04/12/25 12:01 04/12/25 12:16 Temperature Pulse Rate 78 77 79 Respiratory Rate 12 12 Blood Pressure 158/80 H 160/75 H Pulse Oximetry 99 94 Oxygen Delivery 04/12/25 12:31 04/12/25 12:46 04/12/25 13:01 Temperature Pulse Rate 78 82 82 Respiratory Rate 12 14 15 Blood Pressure 154/75 H 162/75 H 153/81 H Pulse Oximetry 97 99 99 Oxygen Delivery Exam Const: General: uncomfortable Other: lying supine at this time on stretcher in no acute distress. HENMT: Face/Nose/Sinus: Normal nares present Mouth: Yes dry mucous membranes Eyes: General: appearance normal, both eyes and all related structures Neck: Neck: supple and no JVD Lymphatic: lymphadenopathy not noted Chest: Other: not tender to palpation, no crepitus Resp: Effort & Inspection: normal respiratory effort Auscultation: clear to auscultation bilaterally Cardio: Rate: regular rate Rhythm: regular rhythm Heart sounds: no gallops, no murmurs and no rubs GI: Inspection: non-distended GI Palp: Yes Soft to palpation and Yes Tenderness to palpation present (GI) (low abdominal tenderness, worse suprapubic region.) Auscultation: normal bowel sounds Urinary Catheter: Urinary Catheter: patent and draining and urine clear Skin: General skin exam: normal color, no rashes or lesions noted and no erythema Wounds: no wounds Other: 4 lap surgical incisions intact to the r ight shoulder with steri strips in place. No redness, warmth, drainage or any edema Neuro: Speech: normal speech Motor exam (neuro): Abnormal motor strength present (RUE - operative extremity weak w/decreased AROM.) Sensory Exam: normal sensation Other: Cap refill BUE <2 sec and radial pulses BUE 2+ Extrem: General: normal exam except as noted Other: RUE held in adduction and immobilized. Normal cap refill and radial pulses. Psych: Mental Status: mental status grossly normal Affect: Sad affect present (apparent depressed affect.) H&P: Results Labs Labs: Short CBC 04/12/25 Range/Units 12:03 WBC 12.5 H (4.5-10.0) K/mm3 Hgb 13.2 (12.0-15.0) g/dL Hct 38.4 (37.0-47.0) % Plt Count 327 (150-375) k/mm3 BMP 04/12/25 12:03 Sodium 131 L Potassium 3.5 Chloride 97 L Carbon Dioxide 29 BUN 12 Creatinine 0.61 L Glucose 113 H Calcium 8.6 Liver Function 04/12/25 Range/Units 12:03 Total Bilirubin 0.5 (0.2-1.3) mg/dL AST 67 H (14-36) U/L ALT 24 (6-35) U/L Alkaline Phosphatase 145 H (38-126) U/L Albumin 3.7 (3.5-5.1) g/dL Urine 04/12/25 Range/Units 15:23 Urine Color Yellow (Yellow) Urine Appearance Clear (Clear) Urine pH 7.0 (5.0-9.0) Ur Specific [place] 1.018 (1.001-1.035) Urine Protein Negative (Negative) mg/dL Urine Glucose (UA) Negative (Negative) mg/dL Assessment and Plan Assessment and plan (1) Status post rotator cuff repair: Code(s): Z98.890 - Other specified postprocedural states Status: Acute Assessment and Plan: * One week ago on 04/04/25 * Right arm held in adduction with immobilizer * Operative site C/D/I w/out any s/s of infection. * PRN Pain control. (2) Urinary retention: Code(s): R33.9 - Retention of urine, unspecified Status: Acute Assessment and Plan: * Acutely was holding 1400 ml of urine in the bladder * Ragland catheter was placed. * Monitor output and consider voiding trial. * UA was performed and was negative for acute infection. * No abx coverage initiated. * Consult Urology as pt has noted right sided hydronephrosis without stone or mass. (3) Constipation: Code(s): K59.00 - Constipation, unspecified Status: Acute Assessment and Plan: * Manual disimpaction performed in ER. * Start Bowel regimen of Miralax 17G daily, Colace 200 mg BID, with PRN Dulcolax suppository prn if no BM in 3 day intervals. * CT Abd and pelvis was independently viewed by this practitioner and there are no s/s of acute SBO. (4) Other abnormalities of gait and mobility: Code(s): R26.89 - Other abnormalities of gait and mobility Status: Acute Assessment and Plan: * Status post right rotator cuff repair. * Now with indwelling ragland catheter. * Pt lives at home alone and does not feel that she can adequately care for herself. * Consult Care coordination for placment and PT/OT for eval and discharge planning recommendation. * Fall precautions. (5) Hypertension: Code(s): I10 - Essential (primary) hypertension Status: Chronic Assessment and Plan: * BP noted to be runnings 150s/80s. * Restart home meds once they have been confirmed. * Continue to trend and monitor. (6) Dyslipidemia: Code(s): E78.5 - Hyperlipidemia, unspecified Status: Chronic Assessment and Plan: * Heart Healthy diet * Continue Statin therapy once home meds have been confirmed. Quality VTE Prophylaxis VTE prophylaxis: pharmacologic ordered Hospitalist MIPS Advance Care Plan I have confirmed that the patient's Advanced Care Plan is present, code status is documented, or surrogate decision maker is listed in patient medical record.: Yes Medication Reconciliation I have utilized all available resources to obtain, update and review the patients current medications (includes all prescriptions, OTC, herbals, cannabis, and nutritional supplements).: Yes
--- NOTE | 2025-04-12 18:13 | ADMGEN ---
This patient, Gloria Souza, was admitted to [facility] Surg Room 312-01. Patient/family oriented to hospital policies and general routines including ID bracelet, bed and alarms, visiting hours, pain management, procedures, bathroom and other care routines, personal items, smoking policy, room service/diet, and visiting hours. Information on how to activate the Rapid Response Team has been discussed. Patient/Family are encouraged to report perceived risks to care and to ask questions if they do not understand what they are told or what they should do.
[2025-04-12] MEDS: DOCUSATE SODIUM 100 MG CAPSULE 200 MG PO (20:15)
[2025-04-12] MEDS: IBUPROFEN 600 MG TABLET PO (20:19)
[2025-04-13 05:29] VITALS: BP 167/72; PULSE 73; RESP 16; TEMP 36.2; O2SAT 97
[2025-04-13] MEDS: DOCUSATE SODIUM 100 MG CAPSULE 200 MG PO ×2 (08:12→20:45)
[2025-04-13] MEDS: VALSARTAN 80 MG TABLET PO (08:12)
[2025-04-13] MEDS: ENOXAPARIN 40 MG/0.4 ML SYRINGE SUB-Q (08:13)
[2025-04-13] MEDS: ASPIRIN 81 MG ENTERIC TABLET 162 MG PO (08:13)
--- NOTE | 2025-04-13 09:04 | P.CONUR_ITS ---
Assessment and Plan Assessment and plan (1) Urinary retention: Code(s): R33.9 - Retention of urine, unspecified Status: Acute (2) Constipation: Qualifiers: Constipation type: other constipation type Qualified Code(s): K59.09 - Other constipation Code(s): K59.00 - Constipation, unspecified Status: Acute (3) Hydronephrosis: Code(s): N13.30 - Unspecified hydronephrosis Status: Acute Plan 75y old female with urinary retention and mild right hydro in setting of constipation being POD 9 right sided rotator cuff repair 04/04/25 at [facility] [place] assisting [facility]. -bowel regimen needed for her post op constipation and moving forward -keep ragland for at least a week. -depending on LOS, could consider voiding trial before discharge or may do as outpatient. -Renal US on moday to reevaluate hydronephrosis. -No plan for urologic surgical intervention. Urology Consult Note HPI Date Seen: 04/13/25 Requesting Physician: Chirag Lynch MD Primary Care Provider: Jai Tong, Consult Narrative Narrative: Gloria Souza is a 75 year old female with past medical history of hypertension hyperlipidemia who is status post right sided rotator cuff repair 04/04/25 at [facility] surgery [facility] who comes to the emergency room with complaints of having no bowel movement for 1 week and increased urgency of urination. Patient reports that she was given oxycodone to take for pain and has been taking that at home for pain and her arm is held in immobilization with sling and swath. As a result patient has been unable to have a bowel movement despite her surgeon prescribing her Linzess and lactulose that she has taken for the past 3 days. Patient stated last night the pain and bloating in the abdomen became unbearable, prompting her to present to the emergency room for evaluation today. Patient also endorses urinary symptoms of urgency for 4 days without any burning and states she feels so bloated she cannot tell if she is adequately emptying her bladder or not. Her temperature yesterday was a T-max of 101.0?. She also had associated nausea and vomiting yesterday. She reports intermittent flatus. Patient does live at home alone, states she has no help and that she cannot adequately care for herself independently right now. In the emergency room workup was performed showing normal vital signs, unremarkable metabolic panel and CBC with mild leukocytosis at 12.[address] scan of the abdomen pelvis showing a severely distended bladder with mild right hydronephrosis without stone or mass. Patient also noted to have rectal impaction. Patient was manually disimpacted in the ED by the ER provider. Bladder scan showed 1400 cc urine in the bladder and Ragland catheter was placed. Hospitalist service is being asked to admit this patient in the current setting for management of constipation, urinary retention and being unable to care for herself at home potentially requiring placement. Pt is agreeable to this POC. Urinalysis was not ordered at the point this patient was presented to hospitalist service. I asked emergency room provider to please have urine sent and we will monitor for the need of potential antibiotic given findings of CT scan, patient complaints and concern for febrile status yesterday. In addition, the ER provider stated she would order an enema Review of Systems 2 Review of Systems: per [facility] Past Medical History Medical History (Updated 04/13/25 @ 12:36 by Madelaine Hernandez APRN) Other abnormalities of gait and mobility Dyslipidemia Constipation Urinary retention Hypertension High cholesterol Surgical History Surgical History (Updated 04/12/25 @ 18:50 by Emperatriz Gonsalez APRN) Status post rotator cuff repair History of rotator cuff surgery (~04/18/19) (L) shoulder History of hand surgery 2013 (L) hand trigger thumb release 2014 (R) hand trigger thumb release History of bunionectomy of right great toe (~2013) History of bunionectomy of left great toe 2008 & 05/24/18 History of stress incontinence procedure using tension free vaginal tape (~2011) History of breast biopsy 11/05/01 (R) breast--benign 04/08/02 (R) breast--fatty necrosis History of cholecystectomy (2000) History of bilateral salpingo-oophorectomy (08/08/97) benign paratubal hydatid of morgagni/tuboovarian adhesions History of ovarian cystectomy (06/21/96) (L) ovarian cyst--benign History of hysterectomy (11/17/95) mild chronic endocervicitis/superficial adenomyosis/leiomyomata History of dilation and curettage (08/23/95) menometrorrhagia/dysmenorrhea--benign History of cervical polypectomy (10/14/92) moderate atypia, focal with koilcytosis History of tubal ligation (~1979) Family History Family History Sibling Diabetes mellitus sister Mother Cerebrovascular accident Hypertension Heart disease Social History Social History Smoking status: Never smoker Alcohol intake: never Substance use: never Lack of Transportation: No Lack of Food: Never True Current Housing: I Have Housing Concerned About Future Housing: No Difficulty Paying Gas/Electric Bills: No Difficulty Paying for Meds: No Currently Unemployed: No Education: High School Diploma/GED Difficulty w/ Childcare or Family Care: No Living arrangements: alone Occupation/Education: retired Gender identity (if verbalized by the patient): Female Sexual Orientation (if Verbalized by the Patient): Straight or Heterosexual Spiritual care concerns: Yes Meds Home Medications and Allergies Home Medications ?Medication ?Instructions ?Recorded ?Confirmed ?Type pravastatin 40 mg tablet 40 mg PO DAILY 08/04/2203/20 History valsartan 80 mg tablet 80 mg PO DAILY 08/04/2203/20 History aspirin 81 mg tablet,delayed 162 mg PO DAILY 04/12/25 04/12/25 History release (Enteric Coated Aspirin) Allergies Allergy/AdvReac Type Severity Reaction Status Date / Time meperidine Allergy Severe HIVES Verified 04/12/25 19:10 Sulfa (Sulfonamide Allergy Severe HIVES Verified 04/12/25 19:10 Antibiotics) levofloxacin Allergy Intermediate RASH Verified 04/12/25 19:10 hydrocodone Allergy Hives / Verified 04/12/25 19:10 Red Face Vital Signs Vital Signs - 24 hr 04/12/25 10:26 04/12/25 11:56 04/12/25 12:00 Temperature 97.2 F L 97.6 F Pulse Rate 94 77 78 Respiratory Rate 18 12 13 Blood Pressure 139/68 159/76 H 159/76 H Pulse Oximetry 99 97 97 Oxygen Delivery Room Air Room Air 04/12/25 12:01 04/12/25 12:01 04/12/25 12:16 Temperature Pulse Rate 78 77 79 Respiratory Rate 12 12 Blood Pressure 158/80 H 160/75 H Pulse Oximetry 99 94 Oxygen Delivery 04/12/25 12:31 04/12/25 12:46 04/12/25 13:01 Temperature Pulse Rate 78 82 82 Respiratory Rate 12 14 15 Blood Pressure 154/75 H 162/75 H 153/81 H Pulse Oximetry 97 99 99 Oxygen Delivery 04/12/25 16:28 04/12/25 18:22 04/12/25 19:30 Temperature 98.0 F Pulse Rate 81 86 Respiratory Rate 13 20 Blood Pressure 153/81 H 142/72 H Pulse Oximetry 98 99 Oxygen Delivery Room Air 04/12/25 21:08 04/13/25 05:29 Temperature 97.3 F L 97.2 F L Pulse Rate 98 73 Respiratory Rate 14 16 Blood Pressure 168/71 H 167/72 H Pulse Oximetry 100 97 Oxygen Delivery Exam 2 Const: General: comfortable and no acute distress Eyes: General: appearance normal, both eyes and all related structures Resp: Effort & Inspection: normal respiratory effort Urinary Catheter: Urinary Catheter: patent and draining and urine clear Skin: General skin exam: normal color Neuro: Speech: normal speech Results Labs 04/12/25 12:03 04/12/25 12:03 Labs: Short CBC 04/12/25 Range/Units 12:03 WBC 12.5 H (4.5-10.0) K/mm3 Hgb 13.2 (12.0-15.0) g/dL Hct 38.4 (37.0-47.0) % Plt Count 327 (150-375) k/mm3 BMP 04/12/25 12:03 Sodium 131 L Potassium 3.5 Chloride 97 L Carbon Dioxide 29 BUN 12 Creatinine 0.61 L Glucose 113 H Calcium 8.6 Liver Function 04/12/25 Range/Units 12:03 Total Bilirubin 0.5 (0.2-1.3) mg/dL AST 67 H (14-36) U/L ALT 24 (6-35) U/L Alkaline Phosphatase 145 H (38-126) U/L Albumin 3.7 (3.5-5.1) g/dL Urine 04/12/25 Range/Units 15:23 Urine Color Yellow (Yellow) Urine Appearance Clear (Clear) Urine pH 7.0 (5.0-9.0) Ur Specific [place] 1.018 (1.001-1.035) Urine Protein Negative (Negative) mg/dL Urine Glucose (UA) Negative (Negative) mg/dL
[2025-04-13] MEDS: ONDANSETRON INJ 4 MG/2 ML VIAL IV PUSH (09:10)
--- NOTE | 2025-04-13 10:48 | PM.IMPN ---
Progress Note: A&P Assessment and Plan (1) Status post rotator cuff repair: Code(s): Z98.890 - Other specified postprocedural states Status: Acute (2) Urinary retention: Code(s): R33.9 - Retention of urine, unspecified Status: Acute (3) Constipation: Qualifiers: Constipation type: other constipation type Qualified Code(s): K59.09 - Other constipation Code(s): K59.00 - Constipation, unspecified Status: Acute (4) Other abnormalities of gait and mobility: Code(s): R26.89 - Other abnormalities of gait and mobility Status: Acute (5) Hypertension: Code(s): I10 - Essential (primary) hypertension Status: Chronic (6) Dyslipidemia: Code(s): E78.5 - Hyperlipidemia, unspecified Status: Chronic Plan 75y old female with urinary retention and mild right hydro in setting of constipation being POD 9 right sided rotator cuff repair 04/04/25 at [facility]. -bowel regimen needed for her post op constipation -keep ragland for at least a week. She had over a liter in her bladder. -depending on LOS, could consider voiding trial before discharge or may do as outpatient. 04/13 Spoke with urology. No plans for inpatient procedures at this time. Will reassess hydronephrosis with ultrasound on Wednesday, 04/16. Patient cleared for diet as tolerated. Continue bowel regimen. Resume Repatha. Next dose 04/17. Family will bring in medication. Bedside RN updated. Subjective Date/time seen: 04/13/25 10:48 Interval history: 75-year-old female with a past medical history of hypertension, hyperlipidemia who is status post right rotator cuff repair 04/04/25 at [facility]. She presented to the ED on 04/12/2025 with complaints of constipation x1 week and increased urinary urgency. Patient seen at bedside. She states her abdomen is still sore and she is thirsty while NPO. Has been up with minimal assist in the room. Review of Systems Review of Systems: All systems reviewed & are unremarkable except as noted in HPI and below Exam Const: General: no acute distress HENMT: Face/Nose/Sinus: Normal nares present Mouth: Yes dry mucous membranes Eyes: General: appearance normal, both eyes and all related structures Neck: Neck: supple and no JVD Lymphatic: lymphadenopathy not noted Chest: Other: not tender to palpation, no crepitus Resp: Effort & Inspection: normal respiratory effort Auscultation: clear to auscultation bilaterally Cardio: Rate: regular rate Rhythm: regular rhythm Heart sounds: no gallops, no murmurs and no rubs GI: Inspection: non-distended Auscultation: normal bowel sounds Urinary Catheter: Urinary Catheter: patent and draining and urine clear Skin: General skin exam: normal color, no rashes or lesions noted and no erythema Other: 4 lap surgical incisions intact to the right shoulder with steri strips in place. No redness, warmth, drainage or any edema Neuro: Speech: normal speech Motor exam (neuro): Abnormal motor strength present (RUE - operative extremity weak w/decreased AROM.) Sensory Exam: normal sensation Other: Cap refill BUE <2 sec and radial pulses BUE 2+ Extrem: General: normal exam except as noted Other: RUE held in adduction and immobilized. Normal cap refill and radial pulses. Psych: Mental Status: mental status grossly normal Objective Data Vital Signs Vital Signs: Vital Signs - 24 hr 04/12/25 11:56 04/12/25 12:00 04/12/25 12:01 Temperature 97.6 F Pulse Rate 77 78 78 Respiratory Rate 12 13 Blood Pressure 159/76 H 159/76 H Pulse Oximetry 97 97 Oxygen Delivery Room Air 04/12/25 12:01 04/12/25 12:16 04/12/25 12:31 Temperature Pulse Rate 77 79 78 Respiratory Rate 12 12 12 Blood Pressure 158/80 H 160/75 H 154/75 H Pulse Oximetry 99 94 97 Oxygen Delivery 04/12/25 12:46 04/12/25 13:01 04/12/25 16:28 Temperature Pulse Rate 82 82 81 Respiratory Rate 14 15 13 Blood Pressure 162/75 H 153/81 H 153/81 H Pulse Oximetry 99 99 98 Oxygen Delivery 04/12/25 18:22 04/12/25 19:30 04/12/25 21:08 Temperature 98.0 F 97.3 F L Pulse Rate 86 98 Respiratory Rate 20 14 Blood Pressure 142/72 H 168/71 H Pulse Oximetry 99 100 Oxygen Delivery Room Air 04/13/25 05:29 04/13/25 09:45 Temperature 97.2 F L Pulse Rate 73 Respiratory Rate 16 Blood Pressure 167/72 H Pulse Oximetry 97 Oxygen Delivery Room Air Intake/Output Intake/Output: Intake & Output 04/10/25 04/11/25 04/12/25 04/13/25 23:59 23:59 23:59 23:59 Intake Total 200 Output Total 50 800 Balance -50 -600 Meds/Results Medications: Active Medications Generic Name Dose Route Start Last Admin Trade Name Freq PRN Reason Stop Dose Admin Aspirin 162 mg 04/13/25 09:00 04/13/25 08:13 Aspirin 81 Mg Enteric Tablet PO 162 mg DAILY SAMI Administration Bisacodyl 10 mg 04/12/25 16:16 Bisacodyl 10 Mg Suppository RECTAL Q72HR PRN Constipation Docusate Sodium 200 mg 04/12/25 21:00 04/13/25 08:12 Docusate Sodium 100 Mg Capsule PO 200 mg Q12HR SAMI Administration Enoxaparin Sodium 40 mg 04/13/25 09:00 04/13/25 08:13 Enoxaparin 40 Mg/0.4 Ml Syringe SUB-Q 40 mg DAILY SAMI Administration Ibuprofen 600 mg 04/12/25 16:20 04/12/25 20:19 Ibuprofen 600 Mg Tablet PO 600 mg Q6HR PRN Administration Pain Rated 1-3 Ondansetron HCl 4 mg 04/13/25 08:46 04/13/25 09:10 Ondansetron Inj 4 Mg/2 Ml Vial IV PUSH 4 mg Q4H PRN Administration Nausea And Vomiting Oxycodone/Acetaminophen 1 tab 04/12/25 16:20 Oxycodone/Acetaminophen (*Crx) 10-325 Mg Tablet PO Q4H PRN Pain Rated 7-10 Polyethylene Glycol 17 gm 04/13/25 09:00 04/13/25 08:13 Polyethylene Glycol 3350 17 Gm Powd.Pack PO Not Given QAM [facility] Pravastatin Sodium 40 mg 04/13/25 09:00 04/13/25 08:14 Pravastatin Sodium 20 Mg Tablet PO Not Given DAILY [facility] Tramadol HCl 50 mg 04/12/25 16:20 Tramadol Hcl (*Crx) 50 Mg Tablet PO Q6H PRN Pain Rated 4-6 Valsartan 80 mg 04/13/25 09:00 04/13/25 08:12 Valsartan 80 Mg Tablet PO 80 mg DAILY [facility] Administration Radiology Results: ITS Impressions Abdomen/Pelvis CT 04/12/25 13:26 IMPRESSION: 1. Severe bladder distention with mild right hydronephrosis. No obstructing stone or mass identified. Labs Labs: Laboratory Results - last 24 hr 04/12/25 04/12/25 12:03 15:23 WBC 12.5 H RBC 4.27 Hgb 13.2 Hct 38.4 MCV 89.9 MCH 30.9 MCHC 34.4 RDW 12.9 Plt Count 327 MPV 8.4 Immature Gran % (Auto) 0.5 Neut % (Auto) 83.0 H Lymph % (Auto) 7.8 L [place] % (Auto) 7.5 Eos % (Auto) 0.8 Baso % (Auto) 0.4 Lymph # (Auto) 0.97 [place] # (Auto) 0.9 H Eos # (Auto) 0.1 Baso # (Auto) 0.1 Abs Immat Gran (auto) 0.06 H Absolute Neuts (auto) 10.4 H Absolute Nucleated RBC 0.000 Nucleated RBC % 0.0 Sodium 131 L Potassium 3.5 Chloride 97 L Carbon Dioxide 29 Anion Gap 5 BUN 12 Creatinine 0.61 L Estim Creat Clear Calc 79 Estimated GFR > 60 Glucose 113 H Calcium 8.6 Total Bilirubin 0.5 AST 67 H ALT 24 Alkaline Phosphatase 145 H Total Protein 7.1 Albumin 3.7 Urine Color Yellow Urine Appearance Clear Urine pH 7.0 Ur Specific [place] 1.018 Urine Protein Negative Urine Glucose (UA) Negative Urine Ketones Trace H Ur Blood (Man) Negative Urine Nitrate Negative Urine Bilirubin Negative Urine Urobilinogen 0.2 Leukocyte Esterase Rfl Negative Quality VTE Prophylaxis VTE prophylaxis: pharmacologic ordered
[2025-04-13] MEDS: BISACODYL 10 MG SUPPOSITORY RECTAL (13:11)
[2025-04-13 14:00] VITALS: BP 111/51; PULSE 82; RESP 16; O2SAT 98
[2025-04-13 22:00] VITALS: BP 144/68; PULSE 81; RESP 18; TEMP 36.3; O2SAT 97
[2025-04-14 04:27] VITALS: BP 148/74; PULSE 74; RESP 16; TEMP 36.8; O2SAT 96
[2025-04-14] MEDS: ASPIRIN 81 MG ENTERIC TABLET 162 MG PO (09:57)
[2025-04-14] MEDS: DOCUSATE SODIUM 100 MG CAPSULE 200 MG PO ×2 (09:58→21:15)
[2025-04-14] MEDS: VALSARTAN 80 MG TABLET PO (09:58)
[2025-04-14] MEDS: ENOXAPARIN 40 MG/0.4 ML SYRINGE SUB-Q (09:58)
[2025-04-14] MEDS: ONDANSETRON INJ 4 MG/2 ML VIAL IV PUSH (10:04)
--- NOTE | 2025-04-14 10:31 | PM.IMPN ---
Progress Note: A&P Assessment and Plan (1) Status post rotator cuff repair: Code(s): Z98.890 - Other specified postprocedural states Status: Acute (2) Urinary retention: Code(s): R33.9 - Retention of urine, unspecified Status: Acute (3) Constipation: Qualifiers: Constipation type: other constipation type Qualified Code(s): K59.09 - Other constipation Code(s): K59.00 - Constipation, unspecified Status: Acute (4) Other abnormalities of gait and mobility: Code(s): R26.89 - Other abnormalities of gait and mobility Status: Acute (5) Hypertension: Qualifiers: Hypertension type: primary hypertension Qualified Code(s): I10 - Essential (primary) hypertension Code(s): I10 - Essential (primary) hypertension Status: Chronic (6) Dyslipidemia: Code(s): E78.5 - Hyperlipidemia, unspecified Status: Chronic Plan 75y old female with urinary retention and mild right hydro in setting of constipation being POD 9 right sided rotator cuff repair 04/04/25 at [facility] in [place]. -bowel regimen needed for her post op constipation -keep ragland for at least a week. She had over a liter in her bladder. -depending on LOS, could consider voiding trial before discharge or may do as outpatient. 04/13: Spoke with urology. No plans for inpatient procedures at this time. Will reassess hydronephrosis with ultrasound on Wednesday, 04/16. Patient cleared for diet as tolerated. Continue bowel regimen. Resume Repatha. Next dose due on 04/17. Family will bring in medication. Bedside RN updated. 04/14: Patient seen sitting up in chair. Reports only small amount of gelatinous stool has been passed and noted it has a dark red tint mixed in. KUB ordered to assess impaction. Will repeat soap suds enema based on results. Subjective Date/time seen: 04/14/25 0830 Interval history: 75-year-old female with a past medical history of hypertension, hyperlipidemia who is status post right rotator cuff repair 04/04/25 at [facility] in [place]. She presented to the ED on 04/12/2025 with complaints of constipation x1 week and increased urinary urgency. Patient reports intermittient nausea with no vomiting and no large stool has passed. Review of Systems Review of Systems: All systems reviewed & are unremarkable except as noted in HPI and below Exam Const: General: no acute distress HENMT: Face/Nose/Sinus: Normal nares present Mouth: Yes dry mucous membranes Eyes: General: appearance normal, both eyes and all related structures Neck: Neck: supple and no JVD Lymphatic: lymphadenopathy not noted Chest: Other: not tender to palpation Resp: Effort & Inspection: normal respiratory effort Auscultation: clear to auscultation bilaterally Cardio: Rate: regular rate Rhythm: regular rhythm Heart sounds: no gallops, no murmurs and no rubs GI: Inspection: non-distended Auscultation: normal bowel sounds Urinary Catheter: Urinary Catheter: patent and draining and urine clear Skin: General skin exam: normal color, no rashes or lesions noted and no erythema Other: lap sites intact to the right shoulder with steri strips in place. No redness, warmth, drainage or any edema Neuro: Speech: normal speech Motor exam (neuro): Abnormal motor strength present (RUE - operative extremity weak w/decreased AROM.) Sensory Exam: normal sensation Other: Cap refill BUE <2 sec and radial pulses BUE 2+ Extrem: General: normal exam except as noted Other: RUE held in adduction and immobilized. Normal cap refill and radial pulses. Psych: Mental Status: mental status grossly normal Objective Data Vital Signs Vital Signs: Vital Signs - 24 hr 04/13/25 11:46 04/13/25 14:00 04/13/25 20:00 Temperature Pulse Rate 82 Respiratory Rate 16 Blood Pressure 111/51 L Pulse Oximetry 98 Oxygen Delivery Room Air Room Air 04/13/25 22:00 04/14/25 04:27 Temperature 97.3 F L 98.2 F Pulse Rate 81 74 Respiratory Rate 18 16 Blood Pressure 144/68 H 148/74 H Pulse Oximetry 97 96 Oxygen Delivery Intake/Output Intake/Output: Intake & Output 04/11/25 04/12/25 04/13/25 04/14/25 23:59 23:59 23:59 23:59 Intake Total 1590 240 Output Total 50 1400 550 Balance -50 190 -310 Meds/Results Medications: Active Medications Generic Name Dose Route Start Last Admin Trade Name Freq PRN Reason Stop Dose Admin Aspirin 162 mg 04/13/25 09:00 04/14/25 09:57 Aspirin 81 Mg Enteric Tablet PO 162 mg DAILY SAMI Administration Bisacodyl 10 mg 04/12/25 16:16 04/13/25 13:11 Bisacodyl 10 Mg Suppository RECTAL 10 mg Q72HR PRN Administration Constipation Docusate Sodium 200 mg 04/12/25 21:00 04/14/25 09:58 Docusate Sodium 100 Mg Capsule PO 200 mg Q12HR SAMI Administration Enoxaparin Sodium 40 mg 04/13/25 09:00 04/14/25 09:58 Enoxaparin 40 Mg/0.4 Ml Syringe SUB-Q 40 mg DAILY SAMI Administration Ibuprofen 600 mg 04/12/25 16:20 04/12/25 20:19 Ibuprofen 600 Mg Tablet PO 600 mg Q6HR PRN Administration Pain Rated 1-3 Miscellaneous Information 1 each 04/14/25 00:01 Repatha Syringe - Please Send To Pharmacy For Verification When Received And Clarify Which XX 05/14/25 00:00 CLARIFY SAMI Non-Formulary Medication 140 mg 04/16/25 09:00 Evolocumab [Repatha Syringe] SUB-Q 05/16/25 08:59 [id number] SAMI Ondansetron HCl 4 mg 04/13/25 08:46 04/14/25 10:04 Ondansetron Inj 4 Mg/2 Ml Vial IV PUSH 4 mg Q4H PRN Administration Nausea And Vomiting Oxycodone/Acetaminophen 1 tab 04/12/25 16:20 Oxycodone/Acetaminophen (*Crx) 10-325 Mg Tablet PO Q4H PRN Pain Rated 7-10 Polyethylene Glycol 17 gm 04/13/25 09:00 04/14/25 09:58 Polyethylene Glycol 3350 17 Gm Powd.Pack PO 17 gm QAM SAMI Administration Tramadol HCl 50 mg 04/12/25 16:20 Tramadol Hcl (*Crx) 50 Mg Tablet PO Q6H PRN Pain Rated 4-6 Valsartan 80 mg 04/13/25 09:00 04/14/25 09:58 Valsartan 80 Mg Tablet PO 80 mg DAILY SAMI Administration Radiology Results: ITS Impressions Abdomen/Pelvis CT 04/12/25 13:26 IMPRESSION: 1. Severe bladder distention with mild right hydronephrosis. No obstructing stone or mass identified. Quality VTE Prophylaxis VTE prophylaxis: pharmacologic ordered
[2025-04-14 14:00] VITALS: BP 103/79; PULSE 93; RESP 16; TEMP 36.4; O2SAT 99
[2025-04-14] MEDS: BISACODYL 10 MG SUPPOSITORY RECTAL (14:39)
[2025-04-14 22:00] VITALS: BP 146/66; PULSE 76; RESP 20; TEMP 36.6; O2SAT 98
[2025-04-15 06:00] VITALS: BP 130/59; PULSE 70; RESP 18; TEMP 36.3; O2SAT 95
[2025-04-15] MEDS: DOCUSATE SODIUM 100 MG CAPSULE 200 MG PO ×2 (09:09→20:52)
[2025-04-15] MEDS: ASPIRIN 81 MG ENTERIC TABLET 162 MG PO (09:09)
[2025-04-15] MEDS: ENOXAPARIN 40 MG/0.4 ML SYRINGE SUB-Q (09:10)
[2025-04-15] MEDS: VALSARTAN 80 MG TABLET PO (09:10)
--- NOTE | 2025-04-15 09:11 | PM.IMPN ---
Progress Note: A&P Assessment and Plan (1) Status post rotator cuff repair: Code(s): Z98.890 - Other specified postprocedural states Status: Acute (2) Urinary retention: Code(s): R33.9 - Retention of urine, unspecified Status: Acute (3) Constipation: Qualifiers: Constipation type: other constipation type Qualified Code(s): K59.09 - Other constipation Code(s): K59.00 - Constipation, unspecified Status: Acute (4) Other abnormalities of gait and mobility: Code(s): R26.89 - Other abnormalities of gait and mobility Status: Acute (5) Hypertension: Qualifiers: Hypertension type: primary hypertension Qualified Code(s): I10 - Essential (primary) hypertension Code(s): I10 - Essential (primary) hypertension Status: Chronic (6) Dyslipidemia: Code(s): E78.5 - Hyperlipidemia, unspecified Status: Chronic Plan 75-year-old female recent post right rotator cuff repair 04/04/25 who presented with constipation x1 week and increased urinary urgency. Ragland placed. Treating constipation. Had over a liter in her bladder. . Reports intermittent nausea, no vomiting. Small amount of hematuria, likely pulled ragland Urinary retention Hematuria Hydronephrosis Ragland placed in the ED for urinary retention 1400ml. Had a blood clot in catheter after that Held AM lovenox for DVT prophylaxis. Can resume if no further bleeding Patient reports no prior urinary retention. May be 2/2 recent opiates and constipation Discussed with urology in the ED --Planning follow up US 04/15 to reassess hydronephrosis --If hydronephrosis resolved on ultrasound, can consider void trial, otherwise outpatient urology follow up --Continue aspirin. Hold lovenox. Can given lovenox or aspirin for post op DVT prophylaxis Constipation s/p disimpaction in the ED. Tried Linzess and lactulose at home prior to admission Stool had a dark red tint --Miralax BID --Lactulose daily --Senna hs --Daily bisacodyl suppository if needed Hx Rotator cuff repair Recent rotator cuff repair 04/04/25 at [facility]. Pain controlled with acetaminophen Time Spent With Patient Time: 57 minutes Subjective Date/time seen: 04/15/25 09:11 Interval history: Overnight events Had a medium BM today after an enema and a suppository GI was consulted, recommended lactulose, no interventions Blood clot in Ragland, unclear if it was pulled but is secured to her leg Review of Systems Review of Systems: All systems reviewed & are unremarkable except as noted in HPI and below Exam Narrative: General - Awake and alert. No acute distress Eyes - PERRLA, EOM intact ENT - No thrush, No erythema Neck - No noticeable or palpable swelling Lymph Nodes - No lymphadenopathy Cardiovascular - RRR no m/r/g, no JVD Lungs: Clear to auscultation, No wheezing, use of accessory muscles, no crackles or wheezes. Skin - Skin warm and dry, no wounds or rashes Abdomen - Normal bowel sounds, abdomen soft and nontender Extremities - No edema, cyanosis or clubbing. Right shoulder steri strips, no erythema or edema Musculoskeletal - 5/5 strength, normal range of motion, no swollen or erythematous joints. Neurological ? Alert and oriented x 3, CN 2-12 grossly intact. Psych: Normal mood and affect Objective Data Vital Signs Vital Signs: Vital Signs - 24 hr 04/14/25 14:00 04/14/25 22:00 04/15/25 06:00 Temperature 97.5 F L 97.9 F 97.3 F L Pulse Rate 93 76 70 Respiratory Rate 16 20 18 Blood Pressure 103/79 146/66 H 130/59 L Pulse Oximetry 99 98 95 Intake/Output Intake/Output: Intake & Output 04/12/25 04/13/25 04/14/25 04/15/25 23:59 23:59 23:59 23:59 Intake Total 1590 1820 Output Total 50 1400 1400 1350 Balance -50 190 420 -1350 Meds/Results Medications: Active Medications Generic Name Dose Route Start Last Admin Trade Name Freq PRN Reason Stop Dose Admin Aspirin 162 mg 04/13/25 09:00 04/15/25 09:09 Aspirin 81 Mg Enteric Tablet PO 162 mg DAILY SAMI Administration Bisacodyl 10 mg 04/14/25 12:13 04/14/25 14:39 Bisacodyl 10 Mg Suppository RECTAL 10 mg DAILY PRN Administration Constipation Docusate Sodium 200 mg 04/12/25 21:00 04/15/25 09:09 Docusate Sodium 100 Mg Capsule PO 200 mg Q12HR SAMI Administration Enoxaparin Sodium 40 mg 04/13/25 09:00 04/15/25 09:10 Enoxaparin 40 Mg/0.4 Ml Syringe SUB-Q 40 mg DAILY SAMI Administration Ibuprofen 600 mg 04/12/25 16:20 04/12/25 20:19 Ibuprofen 600 Mg Tablet PO 600 mg Q6HR PRN Administration Pain Rated 1-3 Miscellaneous Information 1 each 04/14/25 00:01 Repatha Syringe - Please Send To Pharmacy For Verification When Received And Clarify Which XX 05/14/25 00:00 CLARIFY SAMI Non-Formulary Medication 140 mg 04/16/25 09:00 Evolocumab [Repatha Syringe] SUB-Q 05/16/25 08:59 [id number] SAMI Ondansetron HCl 4 mg 04/13/25 08:46 04/14/25 10:04 Ondansetron Inj 4 Mg/2 Ml Vial IV PUSH 4 mg Q4H PRN Administration Nausea And Vomiting Oxycodone/Acetaminophen 1 tab 04/12/25 16:20 Oxycodone/Acetaminophen (*Crx) 10-325 Mg Tablet PO Q4H PRN Pain Rated 7-10 Polyethylene Glycol 17 gm 04/13/25 09:00 04/15/25 09:10 Polyethylene Glycol 3350 17 Gm Powd.Pack PO 17 gm QAM SAMI Administration Tramadol HCl 50 mg 04/12/25 16:20 Tramadol Hcl (*Crx) 50 Mg Tablet PO Q6H PRN Pain Rated 4-6 Valsartan 80 mg 04/13/25 09:00 04/15/25 09:10 Valsartan 80 Mg Tablet PO 80 mg DAILY SAMI Administration Radiology Results: ITS Impressions Abdomen/Pelvis CT 04/12/25 13:26 IMPRESSION: 1. Severe bladder distention with mild right hydronephrosis. No obstructing stone or mass identified. Abdomen X-Ray 04/14/25 12:33 IMPRESSION: 1. No acute abnormality. 2. Moderate volume stool can suggest constipation. Quality VTE Prophylaxis VTE prophylaxis: pharmacologic ordered Hospitalist MIPS Advance Care Plan I have confirmed that the patient's Advanced Care Plan is present, code status is documented, or surrogate decision maker is listed in patient medical record.: Yes Medication Reconciliation I have utilized all available resources to obtain, update and review the patients current medications (includes all prescriptions, OTC, herbals, cannabis, and nutritional supplements).: Yes
[2025-04-15] MEDS: PANTOPRAZOLE 40 MG TABLET PO (09:59)
[2025-04-15 13:55] VITALS: BP 122/59; PULSE 86; RESP 16; TEMP 36.9; O2SAT 98
--- NOTE | 2025-04-15 14:31 | P.CONGI_ITS ---
Assessment and Plan Assessment and plan (1) Opioid-induced constipation: Code(s): K59.03 - Drug induced constipation; T40.2X5A - Adverse effect of other opioids, initial encounter Status: Acute Assessment and Plan: recently used narcotics after surgery and here with constipation (this is new) and urinary retention for which she has ragland now will add linzess again, she is already having bm s/p enema, supp and miralax, will also use lactulose expect that will start having BM soon, avoid narcotics at baseline she has normal BM's (2) Nausea & vomiting: Code(s): R11.2 - Nausea with vomiting, unspecified Status: Acute Assessment and Plan: improved (3) Urinary retention: Code(s): R33.9 - Retention of urine, unspecified Status: Acute Assessment and Plan: ragland in place by urologist (4) Status post rotator cuff repair: Code(s): Z98.890 - Other specified postprocedural states Status: Acute (5) Hypertension: Qualifiers: Hypertension type: primary hypertension Qualified Code(s): I10 - Essential (primary) hypertension Code(s): I10 - Essential (primary) hypertension Status: Chronic GI Consult Note Consult date/time: 04/15/25 14:31 Reason for consult: constipation HPI: Gloria Souza is a 75 year old female with past medical history of hypertension hyperlipidemia who is status post right sided rotator cuff repair 04/04/25 at [facility] in [place] admitted to hospital after not having a bowel movement for 1 week and increased urgency of urination. She was taking oxycodone for almost 5 days after surgery and did not have any BM, also had nausea and just not feeling right, also trouble to urinate. She was prescribed Linzess and lactulose for 3 days but did not make a difference and finally advised to come to ER. Evaluation with unremarkable metabolic panel and CBC with mild leukocytosis at 12.5, CT scan of the abdomen pelvis showing a severely distended bladder with mild right hydronephrosis without stone or mass. Patient also noted to have rectal impaction. Patient was manually disimpacted in the ED by the ER provider. Bladder scan showed 1400 cc urine in the bladder and Ragland catheter was placed. She had finally one BM and feeling slightly better. She had colonoscopy Feb this year. Review of Systems 2 Constitutional: Constitutional: Denies night sweats Eyes: Eyes: Denies blurry vision ENT: Reports Normal hearing present Cardiovascular: Cardiovascular: Denies chest pain Respiratory: Respiratory: Denies chest congestion Gastrointestinal: Gastrointestinal: Reports constipation and Reports nausea Genitourinary: Genitourinary: Reports urinary frequency Musculoskeletal: Musculoskeletal: Reports arthralgias Integumentary/Breasts: Skin/Breast: Denies rash Neurologic: Denies Abnormal speech present Psychiatric: Psychiatric: Denies behavioral changes [facility] Past Medical History Medical History (Updated 04/15/25 @ 14:38 by Dheeraj Mims MD) Nausea & vomiting Opioid-induced constipation Other abnormalities of gait and mobility Dyslipidemia Constipation Urinary retention Hypertension High cholesterol Surgical History Surgical History (Updated 04/12/25 @ 18:50 by Emperatriz Gonsalez, LAUNDRY PRESSER) Status post rotator cuff repair History of rotator cuff surgery (~04/18/19) (L) shoulder History of hand surgery 2013 (L) hand trigger thumb release 2014 (R) hand trigger thumb release History of bunionectomy of right great toe (~2013) History of bunionectomy of left great toe 2008 & 05/24/18 History of stress incontinence procedure using tension free vaginal tape (~2011) History of breast biopsy 11/05/01 (R) breast--benign 04/08/02 (R) breast--fatty necrosis History of cholecystectomy (2000) History of bilateral salpingo-oophorectomy (08/08/97) benign paratubal hydatid of morgagni/tuboovarian adhesions History of ovarian cystectomy (06/21/96) (L) ovarian cyst--benign History of hysterectomy (11/17/95) mild chronic endocervicitis/superficial adenomyosis/leiomyomata History of dilation and curettage (08/23/95) menometrorrhagia/dysmenorrhea--benign History of cervical polypectomy (10/14/92) moderate atypia, focal with koilcytosis History of tubal ligation (~1979) Family History Family History Sibling Diabetes mellitus sister Mother Cerebrovascular accident Hypertension Heart disease Social History Social History Smoking status: Never smoker Alcohol intake: never Substance use: never Lack of Transportation: No Lack of Food: Never True Current Housing: I Have Housing Concerned About Future Housing: No Difficulty Paying Gas/Electric Bills: No Difficulty Paying for Meds: No Currently Unemployed: No Education: High School Diploma/GED Difficulty w/ Childcare or Family Care: No Living arrangements: alone Occupation/Education: retired Gender identity (if verbalized by the patient): Female Sexual Orientation (if Verbalized by the Patient): Straight or Heterosexual Spiritual care concerns: Yes Meds Home Medications and Allergies Home Medications ?Medication ?Instructions ?Recorded ?Confirmed ?Type pravastatin 40 mg tablet 40 mg PO DAILY 08/04/2203/20 History valsartan 80 mg tablet 80 mg PO DAILY 08/04/2203/20 History aspirin 81 mg tablet,delayed 162 mg PO DAILY 04/12/25 04/12/25 History release (Enteric Coated Aspirin) evolocumab 140 mg/mL subcutaneous 140 mg subcut .twice a month 04/13/25 04/13/25 History syringe (Repatha Syringe) Allergies Allergy/AdvReac Type Severity Reaction Status Date / Time meperidine Allergy Severe HIVES Verified 04/12/25 19:10 Sulfa (Sulfonamide Allergy Severe HIVES Verified 04/12/25 19:10 Antibiotics) levofloxacin Allergy Intermediate RASH Verified 04/12/25 19:10 hydrocodone Allergy Hives / Verified 04/12/25 19:10 Red Face Vital Signs Vital Signs - 24 hr 04/14/25 22:00 04/15/25 06:00 04/15/25 13:55 Temperature 97.9 F 97.3 F L 98.5 F Pulse Rate 76 70 86 Respiratory Rate 20 18 16 Blood Pressure 146/66 H 130/59 L 122/59 L Pulse Oximetry 98 95 98 Exam 2 Const: General: no acute distress HENMT: Face/Nose/Sinus: Normal nares present Mouth: Yes dry mucous membranes Eyes: General: appearance normal, both eyes and all related structures Neck: Neck: supple and no JVD Chest: Other: not tender to palpation Resp: Effort & Inspection: normal respiratory effort Auscultation: clear to auscultation bilaterally Cardio: Rate: regular rate Rhythm: regular rhythm GI: Inspection: non-distended Auscultation: normal bowel sounds Urinary Catheter: Urinary Catheter: patent and draining and urine clear Skin: General skin exam: normal color and no erythema Neuro: Speech: normal speech Motor exam (neuro): Abnormal motor strength present (RUE - operative extremity weak w/decreased AROM.) Sensory Exam: n ormal sensation Extrem: General: normal exam except as noted Other: RUE held in adduction and immobilized. Normal cap refill and radial pulses. Psych: Mental Status: mental status grossly normal Results Labs 04/12/25 12:03 04/12/25 12:03
--- NOTE | 2025-04-15 18:12 | PHAR ---
PT'S HOME MED REPATHA (EVOLOCUMAB) 140 MG/ML INJ PREFILLED SYRINGE HAS BEEN VERIFIED BY PHARMACY
[2025-04-15 20:00] VITALS: PULSE 80; RESP 18; O2SAT 98
[2025-04-15] MEDS: SENNOSIDES 8.6 MG TABLET PO (20:52)
[2025-04-15 20:59] VITALS: BP 132/51; PULSE 80; RESP 18; TEMP 36.6; O2SAT 98
[2025-04-16 04:32] VITALS: BP 147/68; PULSE 73; RESP 16; TEMP 36.6; O2SAT 100
[2025-04-16] MEDS: LINACLOTIDE 145 MCG CAPSULE PO (06:08)
[2025-04-16] MEDS: ASPIRIN 81 MG ENTERIC TABLET 162 MG PO (09:14)
[2025-04-16] MEDS: DOCUSATE SODIUM 100 MG CAPSULE 200 MG PO ×2 (09:14→21:33)
[2025-04-16] MEDS: LACTULOSE 20 GM/30 ML UDC PO (09:14)
[2025-04-16] MEDS: VALSARTAN 80 MG TABLET PO (09:14)
[2025-04-16] MEDS: PANTOPRAZOLE 40 MG TABLET PO (09:14)
--- NOTE | 2025-04-16 09:21 | PM.IMPN ---
Progress Note: A&P Assessment and Plan (1) Status post rotator cuff repair: Code(s): Z98.890 - Other specified postprocedural states Status: Acute (2) Urinary retention: Code(s): R33.9 - Retention of urine, unspecified Status: Acute (3) Constipation: Qualifiers: Constipation type: other constipation type Qualified Code(s): K59.09 - Other constipation Code(s): K59.00 - Constipation, unspecified Status: Acute (4) Other abnormalities of gait and mobility: Code(s): R26.89 - Other abnormalities of gait and mobility Status: Acute (5) Hypertension: Qualifiers: Hypertension type: primary hypertension Qualified Code(s): I10 - Essential (primary) hypertension Code(s): I10 - Essential (primary) hypertension Status: Chronic (6) Dyslipidemia: Code(s): E78.5 - Hyperlipidemia, unspecified Status: Chronic Plan 75-year-old female recent post right rotator cuff repair 04/04/25 who presented with constipation x1 week and increased urinary urgency. Ragland placed. Treating constipation. Had over a liter in her bladder. . Reports intermittent nausea, no vomiting. Small amount of hematuria, likely pulled ragland. 04/16: Ragland remains in place with clear yellow urine. No hematuria noted. Renal US today to reassess hydronephrosis. Plan for d/c 04/17. Urinary retention Hematuria Hydronephrosis Ragland placed in the ED for urinary retention 1400ml. Had a blood clot in catheter after that Held AM lovenox for DVT prophylaxis. Can resume if no further bleeding Patient reports no prior urinary retention. May be 2/2 recent opiates and constipation Discussed with urology in the ED --Planning follow up US 04/15 to reassess hydronephrosis --If hydronephrosis resolved on ultrasound, can consider void trial, otherwise outpatient urology follow up --Continue aspirin. Hold lovenox. Can given lovenox or aspirin for post op DVT prophylaxis Constipation s/p disimpaction in the ED. Tried Linzess and lactulose at home prior to admission Stool had a dark red tint --Miralax BID --Lactulose daily --Senna hs --Daily bisacodyl suppository if needed Hx Rotator cuff repair Recent rotator cuff repair 04/04/25 at [facility]. Pain controlled with acetaminophen Subjective Date/time seen: 04/16/25 09:21 Interval history: No acute events overnight. Reports a moderate BM yesterday. States her abd is less painful today. Hoping to go home tomorrow. Review of Systems Review of Systems: All systems reviewed & are unremarkable except as noted in HPI and below Exam Narrative: General - Awake and alert. No acute distress Eyes - PERRLA, EOM intact ENT - No thrush, No erythema Neck - No noticeable or palpable swelling Lymph Nodes - No lymphadenopathy Cardiovascular - RRR no m/r/g, no JVD Lungs: Clear to auscultation, No wheezing, use of accessory muscles, no crackles or wheezes. Skin - Skin warm and dry, no wounds or rashes Abdomen - Normal bowel sounds, abdomen soft and nontender Extremities - No edema, cyanosis or clubbing. Right shoulder steri strips, no erythema or edema Musculoskeletal - 5/5 strength, normal range of motion, no swollen or erythematous joints. Neurological ? Alert and oriented x 3, CN 2-12 grossly intact. Psych: Normal mood and affect Objective Data Vital Signs Vital Signs: Vital Signs - 24 hr 04/15/25 13:55 04/15/25 20:00 04/15/25 20:59 Temperature 98.5 F 97.9 F Pulse Rate 86 80 80 Respiratory Rate 16 18 18 Blood Pressure 122/59 L 132/51 L Pulse Oximetry 98 98 98 Oxygen Delivery Room Air 04/16/25 04:32 Temperature 97.8 F Pulse Rate 73 Respiratory Rate 16 Blood Pressure 147/68 H Pulse Oximetry 100 Oxygen Delivery Intake/Output Intake/Output: Intake & Output 04/13/25 04/14/25 04/15/25 04/16/25 23:59 23:59 23:59 23:59 Intake Total 1590 1820 3280 Output Total 1400 1400 1950 2100 Balance 939 989 2357 -2100 Meds/Results Medications: Active Medications Generic Name Dose Route Start Last Admin Trade Name Freq PRN Reason Stop Dose Admin Aspirin 162 mg 04/13/25 09:00 04/16/25 09:14 Aspirin 81 Mg Enteric Tablet PO 162 mg DAILY SAMI Administration Bisacodyl 10 mg 04/14/25 12:13 04/14/25 14:39 Bisacodyl 10 Mg Suppository RECTAL 10 mg DAILY PRN Administration Constipation Docusate Sodium 200 mg 04/12/25 21:00 04/16/25 09:14 Docusate Sodium 100 Mg Capsule PO 200 mg Q12HR SAMI Administration Enoxaparin Sodium 40 mg 04/13/25 09:00 04/15/25 09:10 Enoxaparin 40 Mg/0.4 Ml Syringe SUB-Q 40 mg On Hold: 04/15/25 17:00 DAILY SAMI Administration Ibuprofen 600 mg 04/12/25 16:20 04/12/25 20:19 Ibuprofen 600 Mg Tablet PO 600 mg Q6HR PRN Administration Pain Rated 1-3 Lactulose 20 gm 04/16/25 09:00 04/16/25 09:14 Lactulose 20 Gm/30 Ml Udc PO 20 gm QAM SAMI Administration Linaclotide 145 mcg 04/16/25 06:30 04/16/25 06:08 Linaclotide 145 Mcg Capsule PO 145 mcg DAILY@0630 SAMI Administration Non-Formulary ( 0 each 04/16/25 09:00 Evolocumab 140 Mg/Ml SUB-Q 05/16/25 08:59 Subcutaneous Q14D SAMI Syringe) Ondansetron HCl 4 mg 04/13/25 08:46 04/14/25 10:04 Ondansetron Inj 4 Mg/2 Ml Vial IV PUSH 4 mg Q4H PRN Administration Nausea And Vomiting Oxycodone/Acetaminophen 1 tab 04/12/25 16:20 Oxycodone/Acetaminophen (*Crx) 10-325 Mg Tablet PO Q4H PRN Pain Rated 7-10 Pantoprazole Sodium 40 mg 04/15/25 09:25 04/16/25 09:14 Pantoprazole 40 Mg Tablet PO 40 mg QAM SAMI Administration Polyethylene Glycol 17 gm 04/15/25 17:00 04/16/25 09:14 Polyethylene Glycol 3350 17 Gm Powd.Pack PO 17 gm BID SAMI Administration Senna 8.6 mg 04/15/25 21:00 04/15/25 20:52 Sennosides 8.6 Mg Tablet PO 8.6 mg HS SAMI Administration Tramadol HCl 50 mg 04/12/25 16:20 Tramadol Hcl (*Crx) 50 Mg Tablet PO Q6H PRN Pain Rated 4-6 Valsartan 80 mg 04/13/25 09:00 04/16/25 09:14 Valsartan 80 Mg Tablet PO 80 mg DAILY SAMI Administration Radiology Results: ITS Impressions Abdomen/Pelvis CT 04/12/25 13:26 IMPRESSION: 1. Severe bladder distention with mild right hydronephrosis. No obstructing stone or mass identified. Abdomen X-Ray 04/14/25 12:33 IMPRESSION: 1. No acute abnormality. 2. Moderate volume stool can suggest constipation. Quality VTE Prophylaxis VTE prophylaxis: pharmacologic ordered
[2025-04-16] MEDS: EVOLOCUMAB 140 MG/ML SUB-Q (09:23)
[2025-04-16 09:38] VITALS: RESP 16; O2SAT 100
--- NOTE | 2025-04-16 13:14 | WPDUROPN2 ---
Progress Note: A&P Assessment and Plan (1) Urinary retention: Code(s): R33.9 - Retention of urine, unspecified Status: Acute (2) Constipation: Qualifiers: Constipation type: other constipation type Qualified Code(s): K59.09 - Other constipation Code(s): K59.00 - Constipation, unspecified Status: Acute (3) Hydronephrosis: Qualifiers: Hydronephrosis type: unspecified Qualified Code(s): N13.30 - Unspecified hydronephrosis Code(s): N13.30 - Unspecified hydronephrosis Status: Acute Plan 75y old female s/p rotator cuff repair (04/04/2025) c/b opioid induced constipation and post-op retention with mild Right hydronephrosis s/p Tao catheter placement - Tao catheter draining clear, yellow urine - Continue daily bowel regimen; constipation improving - Plan for renal US today to assess hydronephrosis. - Recommend void trial prior to discharge. If fails, please replace catheter and plan for outpatient void trial. Urology to follow peripherally; please call with further questions. Subjective Subjective Date/Time Seen: 04/16/25 13:14 Interval history: NAEO; pt resting comfortably in room. States constipation is improving and she has had a couple small bowel movements. No issues with Tao catheter. Exam Const: General: comfortable and no acute distress Eyes: General: appearance normal, both eyes and all related structures Resp: Effort & Inspection: normal respiratory effort Urinary Catheter: Urinary Catheter: patent and draining and urine clear Skin: General skin exam: normal color Neuro: Speech: normal speech Extrem: General: normal to inspection Psych: Affect: normal affect Objective Data Vital Signs Vital Signs: Vital Signs - 24 hr 04/15/25 13:55 04/15/25 20:00 04/15/25 20:59 Temperature 36.9 C 36.6 C Pulse Rate 86 80 80 Respiratory Rate 16 18 18 Blood Pressure 122/59 L 132/51 L Pulse Oximetry 98 98 98 Oxygen Delivery Room Air 04/16/25 04:32 04/16/25 09:38 Temperature 36.6 C Pulse Rate 73 Respiratory Rate 16 16 Blood Pressure 147/68 H Pulse Oximetry 100 100 Oxygen Delivery Room Air Intake/Output Intake/Output: Intake & Output 04/13/25 04/14/25 04/15/25 04/16/25 23:59 23:59 23:59 23:59 Intake Total 1590 1820 3280 600 Output Total 1400 1400 1950 2100 Balance 152 029 0730 -1500 Meds/Results Medications: Active Medications Generic Name Dose Route Start Last Admin Trade Name Srinivasaq PRN Reason Stop Dose Admin Aspirin 162 mg 04/13/25 09:00 04/16/25 09:14 Aspirin 81 Mg Enteric Tablet PO 162 mg DAILY SAMI Administration Bisacodyl 10 mg 04/14/25 12:13 04/14/25 14:39 Bisacodyl 10 Mg Suppository RECTAL 10 mg DAILY PRN Administration Constipation Docusate Sodium 200 mg 04/12/25 21:00 04/16/25 09:14 Docusate Sodium 100 Mg Capsule PO 200 mg Q12HR SAMI Administration Enoxaparin Sodium 40 mg 04/13/25 09:00 04/15/25 09:10 Enoxaparin 40 Mg/0.4 Ml Syringe SUB-Q 40 mg On Hold: 04/15/25 17:00 DAILY SAMI Administration Ibuprofen 600 mg 04/12/25 16:20 04/12/25 20:19 Ibuprofen 600 Mg Tablet PO 600 mg Q6HR PRN Administration Pain Rated 1-3 Lactulose 20 gm 04/16/25 09:00 04/16/25 09:14 Lactulose 20 Gm/30 Ml Udc PO 20 gm QAM SAMI Administration Linaclotide 145 mcg 04/16/25 06:30 04/16/25 06:08 Linaclotide 145 Mcg Capsule PO 145 mcg DAILY@0630 SAMI Administration Non-Formulary ( 0 each 04/16/25 09:00 04/16/25 09:23 Evolocumab 140 Mg/Ml SUB-Q 05/16/25 08:59 140 each Subcutaneous Q14D SAMI Administration Syringe) Ondansetron HCl 4 mg 04/13/25 08:46 04/14/25 10:04 Ondansetron Inj 4 Mg/2 Ml Vial IV PUSH 4 mg Q4H PRN Administration Nausea And Vomiting Oxycodone/Acetaminophen 1 tab 04/12/25 16:20 Oxycodone/Acetaminophen (*Crx) 10-325 Mg Tablet PO Q4H PRN Pain Rated 7-10 Pantoprazole Sodium 40 mg 04/15/25 09:25 04/16/25 09:14 Pantoprazole 40 Mg Tablet PO 40 mg QAM SAMI Administration Polyethylene Glycol 17 gm 04/15/25 17:00 04/16/25 09:14 Polyethylene Glycol 3350 17 Gm Powd.Pack PO 17 gm BID SAMI Administration Senna 8.6 mg 04/15/25 21:00 04/15/25 20:52 Sennosides 8.6 Mg Tablet PO 8.6 mg HS SAMI Administration Tramadol HCl 50 mg 04/12/25 16:20 Tramadol Hcl (*Crx) 50 Mg Tablet PO Q6H PRN Pain Rated 4-6 Valsartan 80 mg 04/13/25 09:00 04/16/25 09:14 Valsartan 80 Mg Tablet PO 80 mg DAILY SAMI Administration Radiology Results: ITS Impressions Abdomen/Pelvis CT 04/12/25 13:26 IMPRESSION: 1. Severe bladder distention with mild right hydronephrosis. No obstructing stone or mass identified. Abdomen X-Ray 04/14/25 12:33 IMPRESSION: 1. No acute abnormality. 2. Moderate volume stool can suggest constipation.
[2025-04-16 14:00] VITALS: BP 132/61; PULSE 84; RESP 18; TEMP 35.8; O2SAT 96
--- NOTE | 2025-04-16 15:24 | WPDGIPROGNO ---
Progress Note: A&P Assessment and Plan (1) Opioid-induced constipation: Code(s): K59.03 - Drug induced constipation; T40.2X5A - Adverse effect of other opioids, initial encounter Status: Acute Assessment and Plan: she is having now BM and eating more overall better hopefully home tomorrow, she can go home with linzess and miralax will follow only as needed (2) Nausea & vomiting: Code(s): R11.2 - Nausea with vomiting, unspecified Status: Acute Assessment and Plan: resolved (3) Urinary retention: Code(s): R33.9 - Retention of urine, unspecified Status: Acute Assessment and Plan: ragland still in place (4) Status post rotator cuff repair: Code(s): Z98.890 - Other specified postprocedural states Status: Acute Subjective Date/time seen: 04/16/25 15:24 Interval history: she had better BM and overall feeling better ragland still in place Review of Systems Review of Systems: All systems reviewed & are unremarkable except as noted in HPI and below Exam Const: General: no acute distress HENMT: Face/Nose/Sinus: Normal nares present Mouth: Yes dry mucous membranes Eyes: General: appearance normal, both eyes and all related structures Neck: Neck: supple and no JVD Resp: Effort & Inspection: normal respiratory effort Auscultation: clear to auscultation bilaterally Cardio: Rate: regular rate Rhythm: regular rhythm GI: Inspection: non-distended GI Palp: No Tenderness to palpation present (GI) Auscultation: normal bowel sounds Urinary Catheter: Urinary Catheter: patent and draining and urine clear Skin: General skin exam: normal color and no erythema Neuro: Speech: normal speech Motor exam (neuro): Abnormal motor strength present (RUE - operative extremity weak ) Sensory Exam: normal sensation Extrem: General: normal exam except as noted Other: RUE held in adduction and immobilized. Normal cap refill and radial pulses. Psych: Mental Status: mental status grossly normal Objective Data Vital Signs Vital Signs: Vital Signs - 24 hr 04/15/25 20:00 04/15/25 20:59 04/16/25 04:32 Temperature 97.9 F 97.8 F Pulse Rate 80 80 73 Respiratory Rate 18 18 16 Blood Pressure 132/51 L 147/68 H Pulse Oximetry 98 98 100 Oxygen Delivery Room Air 04/16/25 09:38 04/16/25 14:00 Temperature 96.5 F L Pulse Rate 84 Respiratory Rate 16 18 Blood Pressure 132/61 Pulse Oximetry 100 96 Oxygen Delivery Room Air Intake/Output Intake/Output: Intake & Output 04/13/25 04/14/25 04/15/25 04/16/25 23:59 23:59 23:59 23:59 Intake Total 1590 1820 3280 600 Output Total 1400 1400 1950 2100 Balance 430 414 8994 -1500 Meds/Results Medications: Active Medications Generic Name Dose Route Start Last Admin Trade Name Freq PRN Reason Stop Dose Admin Aspirin 162 mg 04/13/25 09:00 04/16/25 09:14 Aspirin 81 Mg Enteric Tablet PO 162 mg DAILY SAMI Administration Bisacodyl 10 mg 04/14/25 12:13 04/14/25 14:39 Bisacodyl 10 Mg Suppository RECTAL 10 mg DAILY PRN Administration Constipation Docusate Sodium 200 mg 04/12/25 21:00 04/16/25 09:14 Docusate Sodium 100 Mg Capsule PO 200 mg Q12HR SAMI Administration Enoxaparin Sodium 40 mg 04/13/25 09:00 04/15/25 09:10 Enoxaparin 40 Mg/0.4 Ml Syringe SUB-Q 40 mg On Hold: 04/15/25 17:00 DAILY SAMI Administration Ibuprofen 600 mg 04/12/25 16:20 04/12/25 20:19 Ibuprofen 600 Mg Tablet PO 600 mg Q6HR PRN Administration Pain Rated 1-3 Lactulose 20 gm 04/16/25 09:00 04/16/25 09:14 Lactulose 20 Gm/30 Ml Udc PO 20 gm QAM SAMI Administration Linaclotide 145 mcg 04/16/25 06:30 04/16/25 06:08 Linaclotide 145 Mcg Capsule PO 145 mcg DAILY@0630 SAMI Administration Non-Formulary ( 0 each 04/16/25 09:00 04/16/25 09:23 Evolocumab 140 Mg/Ml SUB-Q 05/16/25 08:59 140 each Subcutaneous Q14D SAMI Administration Syringe) Ondansetron HCl 4 mg 04/13/25 08:46 04/14/25 10:04 Ondansetron Inj 4 Mg/2 Ml Vial IV PUSH 4 mg Q4H PRN Administration Nausea And Vomiting Oxycodone/Acetaminophen 1 tab 04/12/25 16:20 Oxycodone/Acetaminophen (*Crx) 10-325 Mg Tablet PO Q4H PRN Pain Rated 7-10 Pantoprazole Sodium 40 mg 04/15/25 09:25 04/16/25 09:14 Pantoprazole 40 Mg Tablet PO 40 mg QAM SAMI Administration Polyethylene Glycol 17 gm 04/15/25 17:00 04/16/25 09:14 Polyethylene Glycol 3350 17 Gm Powd.Pack PO 17 gm BID SAMI Administration Senna 8.6 mg 04/15/25 21:00 04/15/25 20:52 Sennosides 8.6 Mg Tablet PO 8.6 mg HS SAMI Administration Tramadol HCl 50 mg 04/12/25 16:20 Tramadol Hcl (*Crx) 50 Mg Tablet PO Q6H PRN Pain Rated 4-6 Valsartan 80 mg 04/13/25 09:00 04/16/25 09:14 Valsartan 80 Mg Tablet PO 80 mg DAILY SAMI Administration Radiology Results: ITS Impressions Abdomen/Pelvis CT 04/12/25 13:26 IMPRESSION: 1. Severe bladder distention with mild right hydronephrosis. No obstructing stone or mass identified. Abdomen X-Ray 04/14/25 12:33 IMPRESSION: 1. No acute abnormality. 2. Moderate volume stool can suggest constipation.
[2025-04-16 20:00] VITALS: PULSE 77; RESP 18; O2SAT 97
[2025-04-16 21:29] VITALS: BP 151/62; PULSE 77; RESP 18; TEMP 36.2; O2SAT 97
[2025-04-16] MEDS: SENNOSIDES 8.6 MG TABLET PO (21:33)
[2025-04-17 05:33] VITALS: BP 147/66; PULSE 78; RESP 16; TEMP 36.6; O2SAT 94
[2025-04-17] MEDS: LINACLOTIDE 145 MCG CAPSULE PO (06:23)
--- NOTE | 2025-04-17 07:53 | PM.DS ---
DS: Admitting Diagnosis Discharge Date 04/17/25 Admitting Diagnosis Constipation DS: Discharge Diagnosis Discharge Diagnosis (1) Status post rotator cuff repair: Code(s): Z98.890 - Other specified postprocedural states Status: Acute (2) Urinary retention: Code(s): R33.9 - Retention of urine, unspecified Status: Acute (3) Constipation: Qualifiers: Constipation type: other constipation type Qualified Code(s): K59.09 - Other constipation Code(s): K59.00 - Constipation, unspecified Status: Acute (4) Other abnormalities of gait and mobility: Code(s): R26.89 - Other abnormalities of gait and mobility Status: Acute (5) Hypertension: Qualifiers: Hypertension type: primary hypertension Qualified Code(s): I10 - Essential (primary) hypertension Code(s): I10 - Essential (primary) hypertension Status: Chronic (6) Dyslipidemia: Code(s): E78.5 - Hyperlipidemia, unspecified Status: Chronic Plan 75-year-old female recent post right rotator cuff repair 04/04/25 who presented with constipation x1 week and increased urinary urgency. Ragland placed. Treating constipation. Had over a liter in her bladder. . Reports intermittent nausea, no vomiting. Small amount of hematuria, likely pulled ragland. 04/16: Ragland remains in place with clear yellow urine. No hematuria noted. Renal US today to reassess hydronephrosis. Plan for d/c 04/17. Urinary retention Hematuria Hydronephrosis Ragland placed in the ED for urinary retention 1400ml. Had a blood clot in catheter after that Held AM lovenox for DVT prophylaxis. Can resume if no further bleeding Patient reports no prior urinary retention. May be 2/2 recent opiates and constipation Discussed with urology in the ED --Planning follow up US 04/15 to reassess hydronephrosis --If hydronephrosis resolved on ultrasound, can consider void trial, otherwise outpatient urology follow up --Continue aspirin. Hold lovenox. Can given lovenox or aspirin for post op DVT prophylaxis Constipation s/p disimpaction in the ED. Tried Linzess and lactulose at home prior to admission Stool had a dark red tint --Miralax BID --Lactulose daily --Senna hs --Daily bisacodyl suppository if needed Hx Rotator cuff repair Recent rotator cuff repair 04/04/25 at [facility]. Pain controlled with acetaminophen DS: Summary Hospital Course Hospital Course: 75-year-old female recent post right rotator cuff repair 04/04/25 who presented with constipation x1 week and increased urinary urgency. Ragland placed. Treating constipation. Had over a liter in her bladder. . Reports intermittent nausea, no vomiting. Small amount of hematuria, likely pulled ragland. 04/16: Ragland remains in place with clear yellow urine. No hematuria noted. Renal US today to reassess hydronephrosis. Plan for d/c 04/17/25. 04/17: Ragland fulled this AM. Having regular BMs. Spontaneously voided. Will discharge today Time Spent with Patient Time attestation: Total time spent providing and/or coordinating discharge services: Exam Narrative: General - Awake and alert. No acute distress Eyes - PERRLA, EOM intact ENT - No thrush, No erythema Neck - No noticeable or palpable swelling Lymph Nodes - No lymphadenopathy Cardiovascular - RRR no m/r/g, no JVD Lungs: Clear to auscultation, No wheezing, use of accessory muscles, no crackles or wheezes. Skin - Skin warm and dry, no wounds or rashes Abdomen - Normal bowel sounds, abdomen soft and nontender Extremities - No edema, cyanosis or clubbing. Right shoulder steri strips, no erythema or edema Musculoskeletal - 5/5 strength, normal range of motion, no swollen or erythematous joints. Neurological ? Alert and oriented x 3, CN 2-12 grossly intact. Psych: Normal mood and affect Const: General: no acute distress HENMT: Face/Nose/Sinus: Normal nares present Eyes: General: appearance normal, both eyes and all related structures Neck: Neck: supple and no JVD Lymphatic: lymphadenopathy not noted Chest: Other: not tender to palpation Resp: Effort & Inspection: normal respiratory effort Auscultation: clear to auscultation bilaterally Cardio: Rate: regular rate Rhythm: regular rhythm Heart sounds: no gallops, no murmurs and no rubs GI: Inspection: non-distended Auscultation: normal bowel sounds Skin: General skin exam: normal color, no rashes or lesions noted and no erythema Wounds: no wounds Other: lap sites intact to the right shoulder with steri strips in place. No redness, warmth, drainage or any edema Neuro: Speech: normal speech Motor exam (neuro): Abnormal motor strength present (RUE - operative extremity weak w/decreased AROM.) Sensory Exam: normal sensation Other: Cap refill BUE <2 sec and radial pulses BUE 2+ Extrem: General: normal exam except as noted Other: RUE held in adduction and immobilized. Normal cap refill and radial pulses. Psych: Mental Status: mental status grossly normal Affect: normal affect Discharge Plan Discharge Attending physician on discharge: Irving Lynch Consulting providers: Keshawn Roman; Brea Adams; Dheeraj Mims Discharging Clinician: Lakeisha Negrete Patient Disposition: Home with Home Health Service Activity: other - see discharge instructions Diet: regular Wound Care Instructions: other - see discharge instructions Discharge Instructions: Please follow your orthopedic surgeons activity and wound care orders. Care Coordination: Patient to have [facility] for PT/OT eval and treat, and usp. Their phone number is [phone], if you have any questions; they will contact you to schedule their visits. RN Please fax discharge instructions to [phone]. Patient Instructions: Antibiotic Form Patient Language: Greek Stand Alone Forms: General Discharge Information Follow-up/Referrals: Ran,MD Jai [Primary Care Provider, Unknown] Keshawn Roman MD [Physician, Urology] Discharge Medications: New sennosides [Senokot] 8.6 mg Tablet 8.6 mg PO HS Qty: 0 0RF polyethylene glycol 3350 [Miralax] 17 gram Powder In Packet 17 g PO DAILY Qty: 0 0RF Continued valsartan 80 mg tablet 80 mg PO DAILY aspirin [Enteric Coated Aspirin] 81 mg tablet,delayed release (DR/EC) 162 mg PO DAILY Repatha Syringe 140 mg/mL syringe 140 mg SUBCUT .twice a month Patient Comments: due Wednesday04/16/25 Discontinued pravastatin 40 mg tablet 40 mg PO DAILY Date of admission: 04/12/25 15:21 Primary Care Provider: RanJai Admitting Provider: Irving Lynch Attending physician on admission: Irving Lynch Condition: Stable Quality VTE Prophylaxis VTE prophylaxis: pharmacologic ordered
[2025-04-17] MEDS: PANTOPRAZOLE 40 MG TABLET PO (08:42)
[2025-04-17] MEDS: DOCUSATE SODIUM 100 MG CAPSULE 200 MG PO (08:42)
[2025-04-17] MEDS: ASPIRIN 81 MG ENTERIC TABLET 162 MG PO (08:42)
[2025-04-17] MEDS: VALSARTAN 80 MG TABLET PO (08:42)
[2025-04-17] MEDS: LACTULOSE 20 GM/30 ML UDC PO (08:43)
[2025-04-17 13:51] VITALS: BP 146/66; PULSE 87; RESP 20; TEMP 36.6; O2SAT 98
== END 2025-04-17 14:20 | disposition home health service (06) | DRG 392 ==
LOC: ANHED 11:20 → ANH3MEDSUR 16:44
PROVIDERS: Admitting Provider Internal Medicine; Emergency Provider Nurse Practitioner Family; PCP Internal Medicine; Visit Provider Nurse Practitioner Adult Health
DX: K59.03 Drug induced constipation (principal); N13.30 Unspecified hydronephrosis; T40.2X5A Adverse effect of other opioids, initial encounter; R33.9 Retention of urine, unspecified; Z98.890 Other specified postprocedural states; R31.9 Hematuria, unspecified; E78.5 Hyperlipidemia, unspecified; I10 Essential (primary) hypertension; R26.89 Other abnormalities of gait and mobility; Z90.49 Acquired absence of other specified parts of digestive tract; Z90.722 Acquired absence of ovaries, bilateral
CPT/HCPCS: 36415; 74018; 74177; 76770; 80053; 81003; 85025; 96374; 97161; 97165; 99285; A9270; J1650; J2405; Q9967